=== PATIENT | male | born 1980 | race Two or more races ===

== ENCOUNTER 2023-10-22 13:13 | Inpatient (IN) | payer MEDICAID ==
[~2023-10-22] VITALS: Ht 175.3 cm; Wt 81.0 kg
[2023-10-22 16:13] LABS: Basophils # (auto) 0 10 ^3/uL (0-0.2); Basophils % (auto) 0.3 % (0.0-2.0); Eosinophils # (auto) 0 10 ^3/uL (0-0.8); Hemoglobin 13.5 g/dL (13.5-17.5); Lymphocytes # (auto) 0.7 10 ^3/uL (0.4-5.4); Lymphocytes % (auto) 6.3 % (10.0-50.0); Mean Corpuscular Hemoglobin 29.1 pg (28.0-32.0); Mean Corpuscular Hgb Conc. 33.9 g/dL (32.0-36.0); Mean Corpuscular Volume 85.8 fL (80.0-100.0); Monocytes # (auto) 1.2 10 ^3/uL (0-1.3); Monocytes % (auto) 11.1 % (0.0-12.0); Neutrophils # (auto) 8.5 10 ^3/uL (1.6-8.6); Neutrophils % (auto) 82.3 % (37.0-80.0); Nucleated Red Blood Cells % 0.1 %; Platelet Count (auto) 262 10^3/uL (140-450); Red Blood Cells 4.66 10^6/uL (4.5-5.90); Red Cell Distribution Width 12.9 % (11.8-14.3); White Blood Cell 10.4 10^3/uL (4.4-10.8)
[2023-10-22 16:33] LABS: Alanine Aminotransferase 99 U/L (7-40); Albumin 4.4 g/dL (3.2-4.8); Alkaline Phosphatase 161 U/L (46-116); Anion Gap 2 (5-15); Aspartate Aminotransferase 67 U/L (13-40); Bilirubin, Total 1.2 mg/dL (0.2-1.0); Calcium 9.5 mg/dL (8.7-10.4); Carbon Dioxide 32 mmol/L (20-30); Chloride 94 mmol/L (98-107); Glucose 117 mg/dL (74-106); Potassium 4.2 mmol/L (3.5-5.1); Sodium 128 mmol/L (136-145); Total Protein 7.5 g/dL (5.7-8.2)
[2023-10-22 16:37] LABS: BUN/Creatinine Ratio 5.7 (10.0-20.0); Blood Urea Nitrogen < 5 mg/dL (9-23)
[2023-10-22 16:50] LABS: Lipase 27 U/L (12-53)
[2023-10-22] MEDS: SODIUM CHLORIDE 0.9% 1,000 ML IV ONE (17:39)
[2023-10-22] MEDS: KETOROLAC TROMETH 30 MG/ML 1ML VIAL IV ONE (17:40)
[2023-10-22] MEDS: ONDANSETRON HCL 4 MG/2 ML VIAL IV ONE (17:41)
[2023-10-22 18:11] LABS: Urine Bacteria None Seen /hpf (None Seen)
[2023-10-22 18:30] VITALS: PULSE 115; RESP 17; O2SAT 95
[2023-10-22] MEDS ORDERED: ACETAMINOPHEN 325 MG TAB PO ONE (18:30)
[2023-10-22 19:01] LABS: Urine Blood 1+ /uL (Negative); Urine Clarity Clear (Clear); Urine Color Yellow (Yellow); Urine Protein, UAD TRACE (Negative); Urine Specific Gravity 1.009 (1.001-1.035); Urine Urobilinogen Normal (Negative); Urine WBC 1 /hpf (0 - 3)
[2023-10-22] MEDS: ACETAMINOPHEN 500 MG TAB PO ONE (19:15)
[2023-10-22] MEDS ORDERED: HYDROcodone-ACET 5/325MG TAB PO PRN (22:45)
[2023-10-22] MEDS ORDERED: ONDANSETRON HCL 4 MG/2 ML VIAL IV PRN (22:45)
[2023-10-22] MEDS ORDERED: hydrALAZINE HCL 20 MG/ML VL IV PRN (22:45)
[2023-10-22] MEDS ORDERED: DOCUSATE SOD 100 MG CAP PO PRN (22:45)
[2023-10-22] MEDS: SODIUM CHLORIDE 0.9% 1,000 ML IV SCH (22:48)
[2023-10-22] MEDS: cefTRIAXone 1GM/50ML D5W 50 ML IV ONE (22:53)
[2023-10-22] MEDS ORDERED: MORPHINE SULFATE INJ 2 MG/ml SYRG IV PRN (23:45)
[2023-10-22] MEDS ORDERED: NITROGLYCERIN 0.4 MG SL TAB SL PRN (23:45)
[2023-10-23] VITALS (8 sets, daily range): BP systolic 114–132; BP diastolic 69–80; PULSE 81–118; RESP 16–21; TEMP 97.9–101.3; O2SAT 0–98
[2023-10-23] MEDS: IBUPROFEN 600 MG TAB PO PRN (00:06)
[2023-10-23] MEDS ORDERED: VANCOMYCIN PER PHARMACY 0 MG IV SCH (02:30)
[2023-10-23] MEDS ORDERED: TRAM50TA2 PO (03:55)
[2023-10-23] MEDS ORDERED: IBUP200C14 PO (03:55)
[2023-10-23] MEDS: VANCOMYCIN 1GM/200ML 200 ML IV ONE (03:56)
[2023-10-23 05:48] LABS: Basophils # (auto) 0 10 ^3/uL (0-0.2); Basophils % (auto) 0.2 % (0.0-2.0); Eosinophils # (auto) 0 10 ^3/uL (0-0.8); Hematocrit 38.1 % (41.0-53.0); Lymphocytes # (auto) 0.9 10 ^3/uL (0.4-5.4); Mean Corpuscular Hemoglobin 29.4 pg (28.0-32.0); Mean Corpuscular Hgb Conc. 34.2 g/dL (32.0-36.0); Mean Corpuscular Volume 85.9 fL (80.0-100.0); Monocytes # (auto) 1.1 10 ^3/uL (0-1.3); Neutrophils # (auto) 7.4 10 ^3/uL (1.6-8.6); Neutrophils % (auto) 78.8 % (37.0-80.0); Platelet Count (auto) 246 10^3/uL (140-450); Red Blood Cells 4.43 10^6/uL (4.5-5.90); White Blood Cell 9.4 10^3/uL (4.4-10.8)
[2023-10-23 06:02] LABS: Alanine Aminotransferase 76 U/L (7-40); Alkaline Phosphatase 139 U/L (46-116); Anion Gap 5 (5-15); Aspartate Aminotransferase 45 U/L (13-40); BUN/Creatinine Ratio 6.1 (10.0-20.0); Blood Urea Nitrogen 6 mg/dL (9-23); Calcium 8.7 mg/dL (8.7-10.4); Carbon Dioxide 27 mmol/L (20-30); Chloride 100 mmol/L (98-107); Glucose 111 mg/dL (74-106); Potassium 4.2 mmol/L (3.5-5.1); Sodium 132 mmol/L (136-145)
[2023-10-23 06:03] LABS: Bilirubin, Total 0.7 mg/dL (0.2-1.0); Total Protein 6.7 g/dL (5.7-8.2)
[2023-10-23] MEDS: FAMOTIDINE (10MG/ML) 2ML VL IV SCH (08:54)
[2023-10-23] MEDS: cefTRIAXone 1GM/50ML D5W 50 ML IV SCH (08:54)
[2023-10-23] MEDS: ACETAMINOPHEN 325 MG TAB PO ONE (10:32)
[2023-10-23 11:17] LABS: Triglycerides 115 mg/dL (< 150)
[2023-10-23 11:18] LABS: LDL Cholesterol 50 mg/dL (< 100)
[2023-10-23 11:19] LABS: HDL Cholesterol 38 mg/dL (40-59)
[2023-10-23 11:20] LABS: Cholesterol 116 mg/dL (< 200)
[2023-10-23 12:05] LABS: Amphetamine Screen, Urine Neg (NEGATIVE); Barbiturate Scree,Urine Neg (NEGATIVE); Benzodiazephine Screen, Urine Neg (NEGATIVE); Cannabinoid Screen, Urine Neg (NEGATIVE); Cocaine Screen, Urine Neg (NEGATIVE); Opiate Scree,Urine Neg (NEGATIVE); Phencyclidine Screen, Urine Neg (NEGATIVE)
[2023-10-23] MEDS: VANCOMYCIN 1GM/200ML 200 ML IV SCH (13:22)
[2023-10-23] MEDS: MORPHINE SULFATE INJ 2 MG/ml SYRG IV PRN (18:49)
[2023-10-23 23:12] LABS: Alanine Aminotransferase 65 U/L (7-40); Albumin 3.9 g/dL (3.2-4.8); Alkaline Phosphatase 168 U/L (46-116); Anion Gap 6 (5-15); Aspartate Aminotransferase 36 U/L (13-40); BUN/Creatinine Ratio 7.4 (10.0-20.0); Blood Urea Nitrogen 7 mg/dL (9-23); Calcium 8.5 mg/dL (8.7-10.4); Carbon Dioxide 25 mmol/L (20-30); Chloride 104 mmol/L (98-107); Glucose 112 mg/dL (74-106); Potassium 4.1 mmol/L (3.5-5.1); Sodium 135 mmol/L (136-145)
[2023-10-23 23:13] LABS: Bilirubin, Total 0.5 mg/dL (0.2-1.0); Total Protein 6.6 g/dL (5.7-8.2)
[2023-10-23] MEDS: PIPERACILLIN-TAZOB 3.375GM 100 ML IV ONE (23:57)
[2023-10-24 01:12] VITALS: BP 116/76; PULSE 94; RESP 19; TEMP 99; O2SAT 96
[2023-10-24] MEDS: VANCOMYCIN 1GM/200ML 200 ML IV ONE (07:00)
[2023-10-24] MEDS: PIPERACILLIN-TAZOB 3.375GM 100 ML IV SCH (07:10)
[2023-10-24] MEDS ORDERED: VANCOMYCIN PER PHARMACY 0 MG IV SCH (08:00)
[2023-10-24 09:00] VITALS: BP 124/77; PULSE 90; RESP 15; TEMP 98.4; O2SAT 95
[2023-10-24 12:00] VITALS: BP 116/78; PULSE 96; RESP 18; TEMP 98.7; O2SAT 96
[2023-10-24] MEDS: VANCOMYCIN 1GM/200ML 200 ML IV SCH (13:39)
[2023-10-24 17:36] VITALS: BP 107/69; PULSE 79; RESP 15; TEMP 97.7; O2SAT 100
[2023-10-24 21:00] VITALS: BP 113/77; PULSE 90; RESP 18; TEMP 99.1; O2SAT 93
[2023-10-25] VITALS (8 sets, daily range): BP systolic 114–143; BP diastolic 69–83; PULSE 87–97; RESP 17–20; TEMP 97.3–101.6; O2SAT 93–97
[2023-10-25 06:55] LABS: Basophils # (auto) 0.1 10 ^3/uL (0-0.2); Basophils % (auto) 0.7 % (0.0-2.0); Eosinophils # (auto) 0.1 10 ^3/uL (0-0.8); Hematocrit 35.1 % (41.0-53.0); Lymphocytes % (auto) 18.4 % (10.0-50.0); Mean Corpuscular Hemoglobin 29.5 pg (28.0-32.0); Mean Corpuscular Hgb Conc. 34.1 g/dL (32.0-36.0); Mean Corpuscular Volume 86.3 fL (80.0-100.0); Monocytes # (auto) 1.8 10 ^3/uL (0-1.3); Monocytes % (auto) 16.4 % (0.0-12.0); Neutrophils # (auto) 6.8 10 ^3/uL (1.6-8.6); Neutrophils % (auto) 63.5 % (37.0-80.0); Platelet Count (auto) 267 10^3/uL (140-450); Red Blood Cells 4.07 10^6/uL (4.5-5.90); Red Cell Distribution Width 13.8 % (11.8-14.3); White Blood Cell 10.8 10^3/uL (4.4-10.8)
[2023-10-25 07:05] LABS: Alanine Aminotransferase 57 U/L (7-40); Alkaline Phosphatase 214 U/L (46-116); Anion Gap 7 (5-15); BUN/Creatinine Ratio 7.7 (10.0-20.0); Blood Urea Nitrogen 6 mg/dL (9-23); Calcium 8.1 mg/dL (8.7-10.4); Carbon Dioxide 24 mmol/L (20-30); Chloride 101 mmol/L (98-107); Glucose 109 mg/dL (74-106); Potassium 3.4 mmol/L (3.5-5.1); Sodium 132 mmol/L (136-145)
[2023-10-25 07:06] LABS: Albumin 3.5 g/dL (3.2-4.8); Aspartate Aminotransferase 31 U/L (13-40); Bilirubin, Total 0.5 mg/dL (0.2-1.0)
[2023-10-25 07:07] LABS: Total Protein 6.1 g/dL (5.7-8.2)
[2023-10-25] MEDS: POTASSIUM EFFERVESENT TAB 25 MEQ PO ONE (08:00)
[2023-10-25] MEDS: DOCUSATE SOD 100 MG CAP PO SCH (08:43)
[2023-10-25] MEDS ORDERED: VANCOMYCIN 1GM/200ML 200 ML IV SCH (12:00)
[2023-10-26] VITALS (7 sets, daily range): BP systolic 119–133; BP diastolic 68–79; PULSE 67–93; RESP 16–20; TEMP 97.8–100.7; O2SAT 93–97
[2023-10-26 07:20] LABS: Alanine Aminotransferase 79 U/L (7-40); Albumin 3.4 g/dL (3.2-4.8); Alkaline Phosphatase 259 U/L (46-116); Anion Gap 5 (5-15); Aspartate Aminotransferase 49 U/L (13-40); Calcium 8.4 mg/dL (8.7-10.4); Carbon Dioxide 25 mmol/L (20-30); Chloride 102 mmol/L (98-107); Glucose 105 mg/dL (74-106); Potassium 3.4 mmol/L (3.5-5.1); Sodium 132 mmol/L (136-145)
[2023-10-26 07:21] LABS: BUN/Creatinine Ratio 6.3 (10.0-20.0); Bilirubin, Total 0.6 mg/dL (0.2-1.0); Blood Urea Nitrogen < 5 mg/dL (9-23); Total Protein 5.9 g/dL (5.7-8.2)
[2023-10-26 11:29] LABS: Hepatitis B Core Total AB Negative (Negative)
[2023-10-26 12:16] LABS: Hepatitis A Total Antibody Positive (Negative); Hepatitis B Surface Antibody Negative (Negative); Hepatitis B Surface Antigen Negative (Negative); Hepatitis C Antibody Negative (Negative)
[2023-10-26] MEDS: POTASSIUM CHL 20 Meq TABLET PO ONE (18:15)
[2023-10-27] VITALS (8 sets, daily range): BP systolic 111–127; BP diastolic 74–79; PULSE 80–101; RESP 16–20; TEMP 98.2–100.4; O2SAT 93–97
[2023-10-27 09:18] LABS: Basophils # (auto) 0.1 10 ^3/uL (0-0.2); Basophils % (auto) 0.8 % (0.0-2.0); Eosinophils # (auto) 0.2 10 ^3/uL (0-0.8); Hematocrit 40.5 % (41.0-53.0); Hemoglobin 13.5 g/dL (13.5-17.5); Lymphocytes # (auto) 1.3 10 ^3/uL (0.4-5.4); Lymphocytes % (auto) 11.1 % (10.0-50.0); Mean Corpuscular Hemoglobin 28.8 pg (28.0-32.0); Mean Corpuscular Hgb Conc. 33.4 g/dL (32.0-36.0); Mean Corpuscular Volume 86.2 fL (80.0-100.0); Monocytes # (auto) 1.6 10 ^3/uL (0-1.3); Monocytes % (auto) 14.1 % (0.0-12.0); Neutrophils # (auto) 8.2 10 ^3/uL (1.6-8.6); Nucleated Red Blood Cells % 0.1 %; Platelet Count (auto) 390 10^3/uL (140-450); Red Cell Distribution Width 13.6 % (11.8-14.3); White Blood Cell 11.4 10^3/uL (4.4-10.8)
[2023-10-27 09:39] LABS: Alanine Aminotransferase 106 U/L (7-40); Albumin 4.1 g/dL (3.2-4.8); Alkaline Phosphatase 272 U/L (46-116); Anion Gap 3 (5-15); Aspartate Aminotransferase 64 U/L (13-40); Bilirubin, Total 0.7 mg/dL (0.2-1.0); Calcium 8.9 mg/dL (8.7-10.4); Carbon Dioxide 27 mmol/L (20-30); Chloride 100 mmol/L (98-107); Glucose 158 mg/dL (74-106); Potassium 3.8 mmol/L (3.5-5.1); Sodium 130 mmol/L (136-145); Total Protein 7.3 g/dL (5.7-8.2)
[2023-10-27 09:40] LABS: BUN/Creatinine Ratio 5.4 (10.0-20.0); Blood Urea Nitrogen < 5 mg/dL (9-23)
[2023-10-28] VITALS (9 sets, daily range): BP systolic 96–112; BP diastolic 65–72; PULSE 83–100; RESP 17–20; TEMP 98.1–100.7; O2SAT 93–100
[2023-10-28] MEDS: VANCOMYCIN 1,250 MG in D5W 5% 250 ML IV SCH (04:00)
[2023-10-28 06:36] LABS: Alanine Aminotransferase 105 U/L (7-40); Albumin 3.9 g/dL (3.2-4.8); Alkaline Phosphatase 225 U/L (46-116); Anion Gap 8 (5-15); Aspartate Aminotransferase 51 U/L (13-40); BUN/Creatinine Ratio 5.6 (10.0-20.0); Bilirubin, Total 0.5 mg/dL (0.2-1.0); Blood Urea Nitrogen 5 mg/dL (9-23); Calcium 8.6 mg/dL (8.7-10.4); Carbon Dioxide 20 mmol/L (20-30); Chloride 100 mmol/L (98-107); Glucose 106 mg/dL (74-106); Potassium 3.8 mmol/L (3.5-5.1); Sodium 128 mmol/L (136-145); Total Protein 6.9 g/dL (5.7-8.2)
[2023-10-28 08:07] LABS: Basophils # (auto) 0.1 10 ^3/uL (0-0.2); Basophils % (auto) 0.9 % (0.0-2.0); Eosinophils # (auto) 0.1 10 ^3/uL (0-0.8); Eosinophils % (auto) 0.9 % (0.0-7.0); Hematocrit 38.1 % (41.0-53.0); Hemoglobin 12.9 g/dL (13.5-17.5); Lymphocytes # (auto) 1.9 10 ^3/uL (0.4-5.4); Mean Corpuscular Hemoglobin 29.1 pg (28.0-32.0); Mean Corpuscular Hgb Conc. 33.8 g/dL (32.0-36.0); Mean Corpuscular Volume 86.1 fL (80.0-100.0); Monocytes # (auto) 1.9 10 ^3/uL (0-1.3); Monocytes % (auto) 14.1 % (0.0-12.0); Neutrophils # (auto) 9.6 10 ^3/uL (1.6-8.6); Neutrophils % (auto) 70.1 % (37.0-80.0); Nucleated Red Blood Cells % 0.3 %; Platelet Count (auto) 377 10^3/uL (140-450); Red Blood Cells 4.42 10^6/uL (4.5-5.90); Red Cell Distribution Width 13.3 % (11.8-14.3); White Blood Cell 13.7 10^3/uL (4.4-10.8)
[2023-10-28] MEDS ORDERED: VANCOMYCIN 1,250 MG in D5W 5% 250 ML IV SCH (12:00)
[2023-10-28] MEDS: VANCOMYCIN 1.25GM/250ML 250 ML IV SCH (14:15)
[2023-10-28] MEDS: LORazepam 2MG/ML-1ML VIAL IV PRN (15:49)
[2023-10-29 01:00] VITALS: BP 111/73; PULSE 65; RESP 18; TEMP 98.8; O2SAT 95
[2023-10-29 03:19] LABS: Hematocrit 37.6 % (41.0-53.0); Hemoglobin 12.6 g/dL (13.5-17.5); Mean Corpuscular Hemoglobin 28.9 pg (28.0-32.0); Mean Corpuscular Hgb Conc. 33.6 g/dL (32.0-36.0); Mean Corpuscular Volume 86.1 fL (80.0-100.0); Platelet Count (auto) 345 10^3/uL (140-450); Red Blood Cells 4.37 10^6/uL (4.5-5.90); Red Cell Distribution Width 13.5 % (11.8-14.3)
[2023-10-29 03:29] LABS: Basophils % (manual) 0 (0.0-2.0); Blast Cells 0; Metamyelocytes % 0; Promyelocytes % 0; Reactive Lymphocytes 0
[2023-10-29 03:30] LABS: Alanine Aminotransferase 92 U/L (7-40); Albumin 3.7 g/dL (3.2-4.8); Alkaline Phosphatase 175 U/L (46-116); Anion Gap 8 (5-15); Aspartate Aminotransferase 40 U/L (13-40); BUN/Creatinine Ratio 6.7 (10.0-20.0); Blood Urea Nitrogen 6 mg/dL (9-23); Calcium 8.5 mg/dL (8.7-10.4); Carbon Dioxide 22 mmol/L (20-30); Chloride 101 mmol/L (98-107); Glucose 102 mg/dL (74-106); Potassium 3.7 mmol/L (3.5-5.1); Sodium 131 mmol/L (136-145)
[2023-10-29 03:31] LABS: Bilirubin, Total 0.7 mg/dL (0.2-1.0); Total Protein 6.7 g/dL (5.7-8.2)
[2023-10-29 04:13] LABS: Band Neutrophils % (manual) 5; Eosinophils % (manual) 3 (0-7); Lymphocytes % (manual) 14 (10.0-50.0); Monocytes % (manual) 14 (0-12); Myelocytes % 1; Platelet Estimate Adequate
[2023-10-29 04:14] LABS: Large Platelets FEW
[2023-10-29 05:00] VITALS: BP 91/53; PULSE 79; RESP 18; TEMP 98.3; O2SAT 97
[2023-10-29 08:00] VITALS: BP 105/70; PULSE 85; RESP 16; RESP 18; TEMP 98.2; O2SAT 98
[2023-10-29 12:00] VITALS: BP 117/66; PULSE 85; RESP 14; TEMP 98.3; O2SAT 95
[2023-10-29] MEDS ORDERED: fentaNYL CITRATE 100 MCG/2 ML VL ONE (12:50)
[2023-10-29] MEDS ORDERED: KETAMINE 50mg/ML 1ml syringe ONE (12:50)
[2023-10-29] MEDS ORDERED: MIDAZOLAM HCL 2MG/2ML 2ml VIAL (1mg/ml) ONE (12:50)
[2023-10-29] MEDS ORDERED: MEPERIDINE HCL (50 MG/ML) 1 ML VIAL ONE (12:50)
[2023-10-29] MEDS ORDERED: LIDOCAINE 2% (LOCAL ANESTH.) PF 5ml SDV ONE (12:51)
[2023-10-29] MEDS ORDERED: KETOROLAC TROMETH 30 MG/ML 1ML VIAL ONE (12:51)
[2023-10-29] MEDS ORDERED: GLYCOPYRROLATE 0.2 MG/ML 1ML VIAL ONE (12:51)
[2023-10-29] MEDS ORDERED: DexAMETHasone SOD PHOS 10MG/1ML VIAL INJ ONE (12:51)
[2023-10-29] MEDS ORDERED: PROPOFOL 10 MG/ML 20 ML IV ONE (12:51)
[2023-10-29] MEDS ORDERED: ROCURONIUM 10MG/ML 10ML VIAL IV ONE (12:51)
[2023-10-29 13:01] LABS: COVID19 ANTIGEN SOFIA FIA POSITIVE (NEGATIVE)
[2023-10-29 14:00] VITALS: BP 113/69; PULSE 83; RESP 16; TEMP 98; O2SAT 96
[2023-10-29] MEDS ORDERED: ZINC220C10 PO (14:03)
[2023-10-29] MEDS ORDERED: ASCO500T11 PO (14:03)
[2023-10-29] MEDS ORDERED: CHOL1CAP47 PO (14:03)
== END 2023-10-29 18:10 | disposition home or self-care (01) | DRG 720 ==
LOC: ER 13:13 → WEST WING 23:33 → OVERFLOW 23:33 → WEST WING 10-23 02:56
PROVIDERS: ADMIT Internal Medicine Geriatric Medicine; ATTEND Internal Medicine Geriatric Medicine
DX: A41.9 Sepsis, unspecified organism (principal); U07.1 COVID-19; K80.00 Calculus of gallbladder with acute cholecystitis without obstruction; A09 Infectious gastroenteritis and colitis, unspecified; E87.1 Hypo-osmolality and hyponatremia; K56.7 Ileus, unspecified; K57.30 Diverticulosis of large intestine without perforation or abscess without bleeding; Z20.822 Contact with and (suspected) exposure to COVID-19; F10.10 Alcohol abuse, uncomplicated; R74.01 Elevation of levels of liver transaminase levels; Z79.899 Other long term (current) drug therapy; Z88.8 Allergy status to other drugs, medicaments and biological substances
CPT/HCPCS: 36415; 74018; 74176; 74181; 76705; 78226; 80053; 80061; 80202; 80307; 81001; 82270; 82306; 82565; 82607; 83036; 83690; 83735; 83986; 84439; 84443; 85007; 85025; 85027; 85048; 86703; 86704; 86706; 86708; 86803; 87040; 87077; 87186; 87340; 87426; G0378; J1100; J1885; J2001; J2250; J2405; J2543; J2704; J3490; J7060

== ENCOUNTER 2023-11-14 23:37 | Inpatient (IN) | payer MEDICAID ==
[~2023-11-14] VITALS: Ht 175.3 cm; Wt 72.9 kg
[~2023-11-14 23:37] MED LIST: ASCO500T11 PO; CHOL1CAP47 PO; IBUP200C14 PO; TRAM50TA2 PO; ZINC220C10 PO
[2023-11-15] VITALS (7 sets, daily range): BP systolic 99–122; BP diastolic 56–76; PULSE 82–103; RESP 16–89; TEMP 98.2–99.3; O2SAT 93–99
[2023-11-15 00:33] LABS: Urine Bacteria None Seen /hpf (None Seen)
[2023-11-15 00:49] LABS: Urine Blood Negative /uL (Negative); Urine Clarity Clear (Clear); Urine Color Light-Yellow (Yellow); Urine Protein, UAD Negative (Negative); Urine Specific Gravity 1.015 (1.001-1.035); Urine Urobilinogen Normal (Negative); Urine WBC <1 /hpf (0 - 3)
[2023-11-15 00:55] LABS: Basophils # (auto) 0.1 10 ^3/uL (0-0.2); Eosinophils # (auto) 0.2 10 ^3/uL (0-0.8)
[2023-11-15 01:10] LABS: Lymphocytes # (auto) 2.2 10 ^3/uL (0.4-5.4); Mean Corpuscular Volume 91.9 fL (80.0-100.0)
[2023-11-15 01:14] LABS: Alanine Aminotransferase 72 U/L (7-40); Albumin 4.3 g/dL (3.2-4.8); Alkaline Phosphatase 168 U/L (46-116); Anion Gap 6 (5-15); Aspartate Aminotransferase 38 U/L (13-40); Bilirubin, Total 0.4 mg/dL (0.2-1.0); Calcium 9.7 mg/dL (8.7-10.4); Carbon Dioxide 25 mmol/L (20-30); Chloride 102 mmol/L (98-107); Glucose 102 mg/dL (74-106); Potassium 4.1 mmol/L (3.5-5.1); Sodium 133 mmol/L (136-145); Total Protein 7.8 g/dL (5.7-8.2)
[2023-11-15 01:16] LABS: Basophils % (auto) 1.1 % (0.0-2.0); Eosinophils % (auto) 2.3 % (0.0-7.0); Hematocrit 31.4 % (41.0-53.0); Hemoglobin 11.3 g/dL (13.5-17.5); Lymphocytes % (auto) 24.6 % (10.0-50.0); Mean Corpuscular Hgb Conc. 35.9 g/dL (32.0-36.0); Monocytes # (auto) 0.8 10 ^3/uL (0-1.3); Monocytes % (auto) 9.2 % (0.0-12.0); Neutrophils # (auto) 5.7 10 ^3/uL (1.6-8.6); Neutrophils % (auto) 62.8 % (37.0-80.0); Platelet Count (auto) 578 10^3/uL (140-450); Red Blood Cells 3.41 10^6/uL (4.5-5.90); White Blood Cell 9.1 10^3/uL (4.4-10.8)
[2023-11-15 01:19] LABS: Large Platelets FEW; Platelet Estimate Increa
[2023-11-15 01:21] LABS: Amphetamine Screen, Urine Neg (NEGATIVE); Barbiturate Scree,Urine Neg (NEGATIVE); Benzodiazephine Screen, Urine Neg (NEGATIVE); Cannabinoid Screen, Urine Neg (NEGATIVE); Cocaine Screen, Urine Neg (NEGATIVE); Opiate Scree,Urine Neg (NEGATIVE); Phencyclidine Screen, Urine Neg (NEGATIVE)
[2023-11-15 01:34] LABS: BUN/Creatinine Ratio 7.1 (10.0-20.0); Blood Urea Nitrogen < 5 mg/dL (9-23)
[2023-11-15] MEDS: ONDANSETRON HCL 4 MG/2 ML VIAL IV ONE (06:32)
[2023-11-15] MEDS: MORPHINE SULFATE INJ 2 MG/ml SYRG IV ONE (06:33)
[2023-11-15] MEDS ORDERED: ONDANSETRON HCL 4 MG/2 ML VIAL IV PRN (10:15)
[2023-11-15] MEDS: SODIUM CHLORIDE 0.9% 1,000 ML IV SCH (10:41)
[2023-11-15] MEDS: HYDROcodone-ACET 5/325MG TAB PO PRN (12:20)
[2023-11-15] MEDS: PIPERACILLIN-TAZOB 3.375GM 100 ML IV ONE (18:02)
[2023-11-15] MEDS: MORPHINE SULFATE INJ 2 MG/ml SYRG IV PRN (18:03)
[2023-11-16] MEDS: PIPERACILLIN-TAZOB 3.375GM 100 ML IV SCH (00:29)
[2023-11-16 01:00] VITALS: BP 123/68; PULSE 129; RESP 17; TEMP 103.1; O2SAT 92
[2023-11-16] MEDS: ACETAMINOPHEN 325 MG TAB PO PRN (01:10)
[2023-11-16 07:21] LABS: Alanine Aminotransferase 89 U/L (7-40); Alkaline Phosphatase 194 U/L (46-116); Anion Gap 8 (5-15); Calcium 9.3 mg/dL (8.7-10.4); Carbon Dioxide 25 mmol/L (20-30); Chloride 101 mmol/L (98-107); Glucose 122 mg/dL (74-106); Potassium 3.9 mmol/L (3.5-5.1); Sodium 134 mmol/L (136-145)
[2023-11-16 07:22] LABS: Albumin 3.8 g/dL (3.2-4.8); Aspartate Aminotransferase 53 U/L (13-40); INR 1.17 (0.9-1.15); Partial Thromboplastin Time 30.8 SEC (24.5-34.5); Prothrombin Time 12.3 sec (9.3-11.8)
[2023-11-16 07:23] LABS: Bilirubin, Total 0.6 mg/dL (0.2-1.0); Total Protein 6.9 g/dL (5.7-8.2)
[2023-11-16 07:24] LABS: BUN/Creatinine Ratio 5.4 (10.0-20.0); Blood Urea Nitrogen < 5 mg/dL (9-23)
[2023-11-16 07:57] LABS: Basophils # (auto) 0.1 10 ^3/uL (0-0.2); Red Cell Distribution Width 13.2 % (11.8-14.3)
[2023-11-16 08:00] VITALS: PULSE 115; RESP 17
[2023-11-16 08:00] LABS: Basophils % (auto) 1.1 % (0.0-2.0); Eosinophils # (auto) 0.2 10 ^3/uL (0-0.8); Eosinophils % (auto) 1.3 % (0.0-7.0); Hematocrit 31.9 % (41.0-53.0); Lymphocytes # (auto) 0.9 10 ^3/uL (0.4-5.4); Lymphocytes % (auto) 7.4 % (10.0-50.0); Mean Corpuscular Hemoglobin 29.9 pg (28.0-32.0); Mean Corpuscular Hgb Conc. 34.6 g/dL (32.0-36.0); Mean Corpuscular Volume 86.4 fL (80.0-100.0); Monocytes # (auto) 0.6 10 ^3/uL (0-1.3); Monocytes % (auto) 5.2 % (0.0-12.0); Neutrophils # (auto) 10.4 10 ^3/uL (1.6-8.6); Nucleated Red Blood Cells % 0.1 %; Platelet Count (auto) 522 10^3/uL (140-450); Red Blood Cells 3.69 10^6/uL (4.5-5.90); White Blood Cell 12.2 10^3/uL (4.4-10.8)
[2023-11-16 09:00] VITALS: BP 117/67; PULSE 115; RESP 17; TEMP 100.2; O2SAT 96
[2023-11-16] MEDS ORDERED: MEPERIDINE HCL (25 MG/ML) 1ML VIAL ONE (09:08)
[2023-11-16] MEDS ORDERED: fentaNYL CITRATE 100 MCG/2 ML VL ONE (09:08)
[2023-11-16] MEDS ORDERED: MIDAZOLAM HCL 2MG/2ML 2ml VIAL (1mg/ml) ONE (09:08)
[2023-11-16] MEDS ORDERED: ROCURONIUM 10MG/ML 10ML VIAL IV ONE (09:12)
[2023-11-16] MEDS ORDERED: LIDOCAINE 2% (LOCAL ANESTH.) PF 5ml SDV ONE (09:12)
[2023-11-16] MEDS ORDERED: ONDANSETRON HCL 4 MG/2 ML VIAL ONE (09:12)
[2023-11-16] MEDS ORDERED: PROPOFOL 10 MG/ML 20 ML IV ONE (09:12)
[2023-11-16] MEDS: LIDOCAINE 1% HCL (LOCAL ANESTH.) INJ 20ML MDV IJ ONE (09:51)
[2023-11-16] MEDS ORDERED: HYDROmorphone HCL 2 MG/ML VL/or syr IV PRN ×2 (10:15)
[2023-11-16] MEDS: ONDANSETRON HCL 4 MG/2 ML VIAL IV ONE (10:15)
[2023-11-16] MEDS ORDERED: NEOSTIGMINE 1 MG/ML INJ (10mg/10ML VIAL) ONE (10:24)
[2023-11-16] MEDS ORDERED: GLYCOPYRROLATE 0.2 MG/ML 1ML VIAL ONE (10:24)
[2023-11-16] MEDS: MEPERIDINE HCL (25 MG/ML) 1ML VIAL IM ONE (11:37)
[2023-11-16] MEDS: LIDOCAINE 1%-Mpf/Epinephrine 1:200,000 30ml VIAL ONE ×2 (12:08)
[2023-11-16] MEDS: MEPERIDINE HCL (25 MG/ML) 1ML VIAL ONE (13:25)
[2023-11-16] MEDS: MEPERIDINE HCL (25 MG/ML) 1ML VIAL IV ONE (13:25)
[2023-11-16 17:00] VITALS: BP 104/62; PULSE 91; RESP 17; TEMP 98.4; O2SAT 97
[2023-11-16 20:00] VITALS: PULSE 92; RESP 18
[2023-11-16 22:00] VITALS: BP 103/56; PULSE 92; RESP 18; TEMP 99.2; O2SAT 93
[2023-11-17 01:00] VITALS: BP 118/69; PULSE 94; RESP 18; TEMP 99.4; O2SAT 93
[2023-11-17 05:00] VITALS: BP 116/71; PULSE 93; RESP 18; TEMP 100.5; O2SAT 93
[2023-11-17 06:46] LABS: Basophils # (auto) 0 10 ^3/uL (0-0.2); Basophils % (auto) 0.4 % (0.0-2.0); Eosinophils # (auto) 0.4 10 ^3/uL (0-0.8); Eosinophils % (auto) 4.9 % (0.0-7.0); Hematocrit 30.3 % (41.0-53.0); Hemoglobin 10.6 g/dL (13.5-17.5); Lymphocytes # (auto) 1.4 10 ^3/uL (0.4-5.4); Lymphocytes % (auto) 15.8 % (10.0-50.0); Mean Corpuscular Hemoglobin 31.1 pg (28.0-32.0); Mean Corpuscular Hgb Conc. 35.1 g/dL (32.0-36.0); Mean Corpuscular Volume 88.6 fL (80.0-100.0); Monocytes # (auto) 0.8 10 ^3/uL (0-1.3); Monocytes % (auto) 9.6 % (0.0-12.0); Neutrophils % (auto) 69.3 % (37.0-80.0); Platelet Count (auto) 436 10^3/uL (140-450); Red Blood Cells 3.42 10^6/uL (4.5-5.90); Red Cell Distribution Width 13.1 % (11.8-14.3); White Blood Cell 8.6 10^3/uL (4.4-10.8)
[2023-11-17 07:03] LABS: Alanine Aminotransferase 80 U/L (7-40); Albumin 3.5 g/dL (3.2-4.8); Alkaline Phosphatase 177 U/L (46-116); Anion Gap 7 (5-15); Aspartate Aminotransferase 35 U/L (13-40); Calcium 8.7 mg/dL (8.7-10.4); Carbon Dioxide 26 mmol/L (20-30); Chloride 100 mmol/L (98-107); Glucose 103 mg/dL (74-106); Potassium 3.9 mmol/L (3.5-5.1); Sodium 133 mmol/L (136-145)
[2023-11-17 07:04] LABS: Bilirubin, Total 0.6 mg/dL (0.2-1.0); Total Protein 6.4 g/dL (5.7-8.2)
[2023-11-17 07:06] LABS: BUN/Creatinine Ratio 6.6 (10.0-20.0); Blood Urea Nitrogen < 5 mg/dL (9-23)
[2023-11-17 08:00] VITALS: PULSE 90; RESP 17
[2023-11-17 09:00] VITALS: BP 109/68; PULSE 90; RESP 17; TEMP 98.4; O2SAT 94
[2023-11-17 13:00] VITALS: BP 119/79; PULSE 89; RESP 16; TEMP 97.9; O2SAT 95
[2023-11-17] MEDS ORDERED: MET500T PO (13:52)
[2023-11-17] MEDS ORDERED: ACET-1882 PO (13:52)
[2023-11-17] MEDS ORDERED: CIPR250T26 PO (13:52)
[2023-11-17 15:31] VITALS: TEMP 36.6
[2023-11-20] MEDS ORDERED: DOXY1CAP58 PO (14:59)
== END 2023-11-17 17:20 | disposition home or self-care (01) | DRG 710 ==
LOC: ER 23:37 → OVERFLOW 11-15 10:16 → EAST 11-15 15:18
PROVIDERS: ADMIT Internal Medicine Pulmonary Disease; ATTEND Emergency Medicine
PROC: 0FT44ZZ Resection of Gallbladder, Percutaneous Endoscopic Approach (ICD-10-PCS; principal; 2023-11-16 09:23)
DX: A41.9 Sepsis, unspecified organism (principal); J15.69 Pneumonia due to other Gram-negative bacteria; J90 Pleural effusion, not elsewhere classified; E87.1 Hypo-osmolality and hyponatremia; K80.10 Calculus of gallbladder with chronic cholecystitis without obstruction; R16.0 Hepatomegaly, not elsewhere classified; G89.29 Other chronic pain; M48.8X5 Other specified spondylopathies, thoracolumbar region; D75.838 Other thrombocytosis; M54.50 Low back pain, unspecified; E87.6 Hypokalemia; E55.9 Vitamin D deficiency, unspecified; R74.01 Elevation of levels of liver transaminase levels; Z79.899 Other long term (current) drug therapy
CPT/HCPCS: 36415; 74176; 76604; 80053; 80307; 81001; 85025; 85610; 85730; 86850; 86900; 86901; 87040; 87070; 87077; 87081; 87186; 87205; 96374; 96375; 99291; G0378; J2001; J2250; J2405; J2543; J2704

== ENCOUNTER 2024-01-21 09:56 | Inpatient (IN) | payer MEDICAID ==
[~2024-01-21] VITALS: Ht 175.3 cm; Wt 64.7 kg
[~2024-01-21 09:56] MED LIST changes: +ACET-1882 PO; +CIPR250T26 PO; +DOXY1CAP58 PO; -IBUP200C14 PO; +MET500T PO; -ZINC220C10 PO
--- NOTE | 2024-01-21 11:13 | ED.PDOC ---
Back pain HPI HPI Comments A 43 YEAR OLD MALE PRESENTS TO THE ED WITH COMPLAINT OF BACK PAIN. PATIENT REPORTS HE HAD A CHOLECYSTECTOMY PERFORMED ON 11/15, BUT SINCE THEN, HE HAS BEEN EXPERIENCING MID TO LOWER BACK PAIN CONSTANTLY, WORSE AFTER HE SLEEPS. PATIENT RELAYS THAT HIS PCP ORDERED AN MRI WITHOUT CONTRAST A WEEK AGO WITH FINDINGS REPORTING L5-S1 DEGENERATION AND POSSIBLE T11-T12 OSTEOMYELITIS. PATIENT STATES HIS PCP ADVISED HIM TO BE SEEN BY THE ED TO MRI WITH CONTRAST L-SPINE TO RULE OUT OSTEOMYELITIS. THERE IS NO SADDLE ANESTHESIA, URINARY OR BOWEL INCONTINENCE. PATIENT DENIES FEVER, CHILLS, SHORTNESS OF BREATH, CHEST PAIN, ABDOMINAL PAIN, NAUSEA, VOMITING, HEADACHE, OR OTHER COMPLAINTS. NO OTHER SYMPTOMS OR MODIFYING FACTORS AT THIS TIME. Chief Complaint: Back Pain Time Seen by MD: 11:08 Reviewed Notes: Nurses Notes, Medications, Allergies Allergies: Coded Allergies: NO KNOWN ALLERGIES (Unverified , 10/22/23) Home Meds Active Scripts Doxycycline (Monohydrate) (Doxycycline) 100 Mg Cap, 100 MG PO BID for 7 Days, #14 CAP Prov:ROSENDO ASENCIO 11/20/23 Metronidazole (Metronidazole) 500 Mg Tab, 500 MG PO TID for 5 Days, #15 TAB Prov:ROSENDO ASENCIO 11/17/23 Ciprofloxacin Hydrochloride (Ciprofloxacin HCl) 250 Mg Tab, 250 MG PO BID for 5 Days, #10 TAB Prov:ROSENDO ASENCIO 11/17/23 Acetaminophen (Acetaminophen) 325 Mg Tab, 650 MG PO Q6HP PRN for 10 Days, #80 TAB Prov:ROSENDO ASENCIO 11/17/23 Cholecalciferol (Vitamin D3 Super Strength) 2,000 Unit Cap, 2000 UNIT PO DAILY for 10 Days, #10 CAP Prov:MELISSA ARAUJO MD 10/29/23 Ascorbic Acid (VITAMIN C TABLET) 500 Mg Tb, 1 TAB PO BID, #20 TAB Prov:MELISSA ARAUJO MD 10/29/23 Reported Medications Tramadol Hcl (Tramadol Hcl) 50 Mg Tab, 50 MG PO, TAB 10/23/23 Information Source: Patient Mode of Arrival: Ambulatory Timing: Months Duration: Since onset Location of Back pain: (R) Lower back, (R) Thoracic Severity: Moderate Prehospital treatment: None Quality: Aching Onset: Spontaneous History of: Other (CHOLECYSTECTOMY 11/15) Modifying Factors: Nothing Associated signs and symptoms: None Past Medical History PAST MEDICAL HISTORY: Gallstones Surgical History: Cholecystectomy Family History Family History: Reviewed,noncontributory to illness, Unknown Social History Smoker: Non-Smoker Alcohol: Occasionally Drugs: Denies Drug Use Lives In: Home Constitutional: denies: chills, diaphoresis, fatigue, fever, malaise, sweats, weakness, others EENTM: denies: blurred vision, double vision, ear bleeding, ear discharge, ear drainage, ear pain, ear ringing, eye pain, eye redness, hearing loss, mouth pain, mouth swelling, nasal discharge, nose bleeding, nose congestion, nose pain, photophobia, tearing, throat pain, throat swelling, voice changes, others Respiratory: denies: cough, hemoptysis, orthopnea, SOB at rest, shortness of breath, SOB with excertion, stridor, wheezing, others Cardiovascular: denies: chest pain, dizzy spells, diaphoresis, Dyspnea on exertion, edema, irregular heart beat, left arm pain, lightheadedness, palpitations, PND, syncope, others Gastrointestinal: denies: abdomen distended, abdominal pain, blood streaked bowels, constipated, diarrhea, dysphagia, difficulty swallowing, hematemesis, melena, nausea, poor appetite, poor fluid intake, rectal bleeding, rectal pain, vomiting, others Genitourinary: denies: burning, dysuria, flank pain, frequency, hematuria, incontinence, penile discharge, penile sore, pain, testicle pain, testicle swelling, urgency, others Neurological: denies: dizziness, fainting, headache, left sided numbness, left sided weakness, numbness, paresthesia, pre-existing deficit, right sided numbness, right sided weakness, seizure, speech problems, tingling, tremors, weakness, others Musculoskeletal: reports: back pain (MID TO LOWER BACK), muscle pain; denies: gout, joint pain, joint swelling, muscle stiffness, neck pain, others Integumetry: denies: bruises, change in color, change in hair/nails, dryness, laceration, lesions, lumps, rash, wounds, others Allergic/Immunocompromised: denies: Difficulty Healing, Frequent Infections, Hives, Itching, others Hematologic/Lymphatic: denies: anemia, blood clots, easy bleeding, easy bruising, swollen glands, others Endocrine: denies: excessive hunger, excessive sweating, excessive thirst, excessive urination, flushing, intolerance to cold, intolerance to heat, unexplained weight gain, unexplained weight loss, others Psychiatric: denies: anxiety, bipolar disorder, depression, hopeless, panic disorder, schizophrenia, sleepless, suicidal, others All Other Systems: Reviewed and Negative Physical Exam General Appearance: No Apparent Distress, Normal HEENT: Normal ENT Inspection, PERRL/EOMI Neck: Full Range of Motion, Non-Tender, Normal, Normal Inspection Respiratory: Chest Non-Tender, Lungs Clear, No Accessory Muscle Use, No Res piratory Distress, Normal Breath Sounds Cardiovascular: No Edema, No JVD, No Murmur, No Gallop, Normal Peripheral Pulses, Regular Rate/Rhythm Breast Exam: Deferred Gastrointestinal: No Organomegaly, Non Tender, No Pulsatile Mass, Normal Bowel Sounds, Soft Genitalia: Deferred Pelvic: Deferred Rectal: Deferred Extremities: No calf tenderness, Normal capillary refill, Normal inspection, Normal range of motion, Non-tender, No pedal edema Musculoskeletal : Location: Bilateral Extremity Location: Back Apperance: Tenderness: Moderate (LOW BACK, NO BONY TENDERNESS, REDNESS AND SWELLING. ) Neurologic: Alert, switching clerk II-XII nml as Tested, No Motor Deficits, Normal Affect, Normal Mood, No Sensory Deficits Cerebellar Function: Normal Reflexes: Normal Skin: Dry, Normal Color, Warm Peripheral Pulses: 2+ carotid (R), 2+ carotid (L) Lymphatic: No Adenopathy Was a procedure done? Was a procedure done?: No Back Pain Differential Dx Differential Diagnosis: Musculoskeletal Pain, Other (DDD OF LOW BACK, SUSPECT OSTEOMYELITIS OF LOW BACK ) X-Ray, Labs, Meds, VS Vital Signs Date Time Temp Pulse Resp B/P (MAP) Pulse Ox O2 Delivery O2 Flow Rate FiO2 01/21/24 14:26 85 16 108/73 (85) 100 01/21/24 13:03 80 18 97 Room Air* 0 21 01/21/24 11:16 98.6 105 18 140/91 (107) 100 98.6 01/21/24 11:16 105 18 100 Room Air 01/21/24 10:44 98.6 105 18 140/91 (107) 100 Lab Test 01/21/24 11:01/21/24 11:06 Range/Units White Blood Count 10.9 H 4.4-10.8 10^3/uL Red Blood Count 5.02 4.5-5.90 10^6/uL Hemoglobin 14.4 13.5-17.5 g/dL Hematocrit 42.0 41.0-53.0 % Mean Corpuscular Volume 83.7 80.0-100.0 fL Mean Corpuscular Hemoglobin 28.6 28.0-32.0 pg Mean Corpuscular Hemoglobin Concent 34.2 32.0-36.0 g/dL Red Cell Distribution Width 13.7 11.8-14.3 % Platelet Count 532 H 140-450 10^3/uL Mean Platelet Volume 7.1 6.9-10.8 fL Neutrophils (%) (Auto) 67.4 37.0-80.0 % Lymphocytes (%) (Auto) 25.6 10.0-50.0 % Monocytes (%) (Auto) 5.2 0.0-12.0 % Eosinophils (%) (Auto) 0.8 0.0-7.0 % Basophils (%) (Auto) 1.0 0.0-2.0 % Neutrophils # (Auto) 7.4 1.6-8.6 10 ^3/uL Lymphocytes # (Auto) 2.8 0.4-5.4 10 ^3/uL Monocytes # (Auto) 0.6 0-1.3 10 ^3/uL Eosinophils # (Auto) 0.1 0-0.8 10 ^3/uL Basophils # (Auto) 0.1 0-0.2 10 ^3/uL Nucleated Red Blood Cells 0.0 % Sodium Level 138 136-145 mmol/L Potassium Level 4.1 3.5-5.1 mmol/L Chloride Level 103 98-107 mmol/L Carbon Dioxide Level 26 20-31 mmol/L Anion Gap 9 5-15 Blood Urea Nitrogen 9 9-23 mg/dL Creatinine 0.87 0.700-1.30 mg/dL Glomerular Filtration Rate Calc 110 >90 mL/min BUN/Creatinine Ratio 10.3 10.0-20.0 Serum Glucose 99 74-106 mg/dL Lactic Acid Level 0.9 0.4-2.0 mmol/L Calcium Level 10.0 8.7-10.4 mg/dL C-Reactive Protein High Sensitivity 2.51 H <1.0 mg/dL Plasma/Serum Blood Alcohol 3.6 <10 mg/dL Urine Color Colorless Yellow Urine Clarity Clear Clear Urine pH 6.5 5.0-9.0 Urine Specific [place] 1.006 1.001-1.035 Urine Protein Negative Negative Urine Ketones Negative Negative Urine Blood Negative Negative /uL Urine Nitrite Negative Negative Urine Bilirubin Negative Negative Urine Urobilinogen Normal Negative mg/dL Urine Leukocyte Esterase Negative Negative /uL Urine RBC <1 0 - 3 /hpf Urine WBC None seen 0 - 3 /hpf Urine Squamous Epithelial Cells None seen <5 /hpf Urine Bacteria None seen None Seen /hpf Urine Glucose Normal Normal mg/dL Current Medications Medications (Trade) Dose Ordered Sig/Eliza Route Start Time Stop Time Status Last Admin Piperacillin Sod/ Tazobactam Sod 100 ml @ 100 mls/hr ONCE ONCE IV 01/21/24 12:30 01/21/24 13:29 DC 01/21/24 12:58 Vancomycin HCl 200 ml @ 200 mls/hr ONCE ONCE IV 01/21/24 12:30 01/21/24 13:29 DC 01/21/24 13:28 Ketorolac Tromethamine (Toradol Injection) 30 mg ONCE ONCE IV 01/21/24 12:30 01/21/24 12:33 DC 01/21/24 12:58 Sodium Chloride 1,000 ml @ 125 mls/hr Q8H ONCE IV 01/21/24 12:30 01/21/24 20:29 01/21/24 12:58 X-Ray, Labs, Meds, VS Comment PATIENT GIVEN: ZOSYN 3.75G, VANCOMYCIN 1G, AND TORADOL 30MG PATIENT BROUGHT IN REPORT OF PREVIOUS MRI STUDY WITHOUT IV CONTRAST, UNABLE TO RULE OUT OSTEOMYELITIS. PATIENT IS TO BE ADMITTED FOR MRI STUDY WITH IV CONTRAST TO RULE OUT OSTEOMYELITIS AND FOR FURTHER EVALUATION. Time of 1ST Reevaluation: 12:20 Reevaluation 1ST: Unchanged Patient Education/Counseling: Diagnosis, Treatment Family Education/Counseling: Diagnosis, Treatment, No Family Present Departure 1 Departure Time of Disposition: 12:23 Impression: Primary Impression: DDD (degenerative disc disease), lumbosacral Qualified Codes: M51.370 - Other intervertebral disc degeneration, lumbosacral region with discogenic back pain only Additional Impressions: Protruded lumbar disc Osteomyelitis of lumbar spine Disposition: ADMITTED INPATIENT Admit to: Med Surg Condition: Serious Critical Care Note Critical Care Time?: No Stability Stability form required: No Unstable for transfer: Requires medication, ED Physician Assesment, Possible rapid decline Heart Score Heart Score: Heart Score Response (Comments) Value History N/A 0 EKG N/A 0 Age N/A 0 Risk Factors N/A 0 Troponin N/A 0 Total 0 I personally scribed for SELENE CUENCA ([email or web address]) on 01/21/24 at 11:13. Electronically submitted by Hay Sandoval ([email or web address]). I personally scribed for SELENE CUENCA ([email or web address]) on 01/21/24 at 12:26. Electronically submitted by Hay Sandoval ([email or web address]). I personally scribed for SELENE CUENCA ([email or web address]) on 01/21/24 at 12:28. Electronically submitted by Hay Sandoval ([email or web address]). SELENE CUENCA Jan 21, 2024 11:13
[2024-01-21 11:39] LABS: Urine Bacteria None Seen /hpf (None Seen); Urine WBC None Seen /hpf (0 - 3)
[2024-01-21 11:46] LABS: Basophils # (auto) 0.1 10 ^3/uL (0-0.2); Eosinophils # (auto) 0.1 10 ^3/uL (0-0.8); Hemoglobin 14.4 g/dL (13.5-17.5); Lymphocytes # (auto) 2.8 10 ^3/uL (0.4-5.4); Monocytes # (auto) 0.6 10 ^3/uL (0-1.3); Neutrophils # (auto) 7.4 10 ^3/uL (1.6-8.6)
[2024-01-21 11:48] LABS: Eosinophils % (auto) 0.8 % (0.0-7.0); Lymphocytes % (auto) 25.6 % (10.0-50.0); Mean Corpuscular Hemoglobin 28.6 pg (28.0-32.0); Mean Corpuscular Hgb Conc. 34.2 g/dL (32.0-36.0); Mean Corpuscular Volume 83.7 fL (80.0-100.0); Monocytes % (auto) 5.2 % (0.0-12.0); Neutrophils % (auto) 67.4 % (37.0-80.0); Platelet Count (auto) 532 10^3/uL (140-450); Red Blood Cells 5.02 10^6/uL (4.5-5.90); Red Cell Distribution Width 13.7 % (11.8-14.3); White Blood Cell 10.9 10^3/uL (4.4-10.8)
[2024-01-21 11:59] LABS: Chloride 103 mmol/L (98-107); Potassium 4.1 mmol/L (3.5-5.1); Sodium 138 mmol/L (136-145)
[2024-01-21 12:00] LABS: Anion Gap 9 (5-15); Carbon Dioxide 26 mmol/L (20-31)
[2024-01-21 12:05] LABS: BUN/Creatinine Ratio 10.3 (10.0-20.0); Blood Urea Nitrogen 9 mg/dL (9-23); Glucose 99 mg/dL (74-106)
[2024-01-21 12:06] LABS: Blood Alcohol 3.6 mg/dL (<10)
[2024-01-21 12:16] LABS: CRP High Sensitivity 2.51 mg/dL (<1.0)
[2024-01-21 12:18] LABS: Urine Blood Negative /uL (Negative); Urine Clarity Clear (Clear); Urine Color Colorless (Yellow); Urine Protein, UAD Negative (Negative); Urine Specific Gravity 1.006 (1.001-1.035); Urine Urobilinogen Normal (Negative); Urine pH 6.5 (5.0-9.0)
[2024-01-21] MEDS: SODIUM CHLORIDE 0.9% 1,000 ML IV ONE ×2 (12:58→16:15)
[2024-01-21] MEDS: KETOROLAC TROMETH 30 MG/ML 1ML VIAL IV ONE (12:58)
[2024-01-21] MEDS: PIPERACILLIN-TAZOB 3.375GM 100 ML IV ONE (12:58)
[2024-01-21 13:03] VITALS: PULSE 80; RESP 18; O2SAT 97
[2024-01-21] MEDS: VANCOMYCIN 1GM/200ML PREMIX 200 ML IV ONE (13:28)
[2024-01-21] MEDS ORDERED: BACL20TA PO (17:25)
[2024-01-21] MEDS ORDERED: KETOROLAC TROMETH 30 MG/ML 1ML VIAL IV PRN (17:30)
--- NOTE | 2024-01-21 17:53 | DVHHP2 ---
History of Present Illness Reason for Visit: Back pain rule out osteomyelitis History of Present Illness 43-year-old male presented to the ED with complaint of back pain. Patient reports he had a cholecystectomy performed on 11/16/2023, since then he has been experiencing mid to lower back pain constantly. Patient reports that it is made worse after sleeping. Patient states his PCP ordered an MRI without contrast to week ago with findings reporting L5 through S1 degeneration and possible T11 through T12 osteomyelitis. Patient states his PCP advised him to come to the ED for MRI with contrast to rule out osteomyelitis. Patient has no saddle anesthesia, urinary or bowel incontinence. Patient is ambulatory. Patient does deny fever, chills, shortness of breath, chest pain, abdominal pain, nausea, vomiting, headache or any other complaints. Patient was admitted for further evaluation medical management. Past Medical History Osteoarthritis, Gallstones Past Surgical History Cholecystectomy Family History Reviewed noncontributory to the management of this case Smoke: No ALCOHOL: occassional Drugs: None Lives: with Family Review of Systems Constitutional: No: Fever, Chills, Sweats, Weakness, Malaise, Other Eyes: No: Pain, Vision change, Conjunctivae inflammation, Eyelid inflammation, Other, Redness ENT: No: Ear pain, Ear discharge, Nose pain, Nose discharge, Nose congestion, Mouth pain, Mouth swelling, Throat pain, Throat swelling, Other Respiratory: No: Cough, Dry, Shortness of breath, SOB with excertion, Wheezing, Hemoptysis, Pleuritic Pain, Sputum, Wheezing, Other Cardiovascular: No: Chest Pain, Palpitations, Orthopnea, Paroxysmal Noc. Dyspnea, Edema, Lt Headedness, Other Gastrointestinal: No: Nausea, Vomiting, Abdominal Pain, Diarrhea, Constipation, Melena, Hematochezia, Other Genitourinary: No Dysuria, No Frequency, No Incontinence, No Hematuria, No Retention, No Other Musculoskeletal: back pain; No: other, neck pain, shoulder pain, arm pain, hand pain, leg pain, foot pain Skin: No: Rash, Lesions, Jaundice, Bruising, Other Neurological: No: Weakness, Numbness, Incoordination, Change in speech, Confusion, Seizures, Other Allergies: Coded Allergies: NO KNOWN ALLERGIES (Unverified , 10/22/23) Medications Current Medications Medications Dose Ordered Sig/Eliza Route Start Time Stop Time Status Last Admin Dose Admin Acetaminophen/ Hydrocodone Bitart 1 tab Q4HP PRN PO 01/21/24 17:30 Baclofen 20 mg Q12HP PO 01/21/24 22:00 Exam Vital Signs Vital Signs Date Time Temp Pulse Resp B/P (MAP) Pulse Ox O2 Delivery O2 Flow Rate FiO2 01/21/24 14:26 85 16 108/73 (85) 100 01/21/24 13:03 Room Air* 0 21 01/21/24 11:16 98.6 98.6 General Appearance: Alert, Oriented X3, Cooperative, No acute distress HEENT: Atraumatic, PERRLA, EOMI, Mucous membr. moist/pink Respiratory: Clear to auscultation, Normal air movement Cardiovascular: Regular rate, Normal S1, Normal S2, No murmurs Abdominal: Normal bowel sounds, Soft, No tenderness, No hepatospenomegaly, No masses Extremities: No clubbing, No cyanosis, No edema, Normal pulses, No tender ness/swelling Skin: No rashes, No breakdown, No significant lesion Neuro: Normal gait, Normal speech, Strength at 5/5 X4 ext, Normal tone, Sensation intact, Cranial nerves 3-12 NL Psych/Mental Status: Mental status NL, Mood NL Labs/Xrays Labs, previous admits and ED notes reviewed Labs Test 01/21/24 11:20 01/21/24 11:06 Range/Units White Blood Count 10.9 H 4.4-10.8 10^3/uL Red Blood Count 5.02 4.5-5.90 10^6/uL Hemoglobin 14.4 13.5-17.5 g/dL Hematocrit 42.0 41.0-53.0 % Mean Corpuscular Volume 83.7 80.0-100.0 fL Mean Corpuscular Hemoglobin 28.6 28.0-32.0 pg Mean Corpuscular Hemoglobin Concent 34.2 32.0-36.0 g/dL Red Cell Distribution Width 13.7 11.8-14.3 % Platelet Count 532 H 140-450 10^3/uL Mean Platelet Volume 7.1 6.9-10.8 fL Neutrophils (%) (Auto) 67.4 37.0-80.0 % Lymphocytes (%) (Auto) 25.6 10.0-50.0 % Monocytes (%) (Auto) 5.2 0.0-12.0 % Eosinophils (%) (Auto) 0.8 0.0-7.0 % Basophils (%) (Auto) 1.0 0.0-2.0 % Neutrophils # (Auto) 7.4 1.6-8.6 10 ^3/uL Lymphocytes # (Auto) 2.8 0.4-5.4 10 ^3/uL Monocytes # (Auto) 0.6 0-1.3 10 ^3/uL Eosinophils # (Auto) 0.1 0-0.8 10 ^3/uL Basophils # (Auto) 0.1 0-0.2 10 ^3/uL Nucleated Red Blood Cells 0.0 % Sodium Level 138 136-145 mmol/L Potassium Level 4.1 3.5-5.1 mmol/L Chloride Level 103 98-107 mmol/L Carbon Dioxide Level 26 20-31 mmol/L Anion Gap 9 5-15 Blood Urea Nitrogen 9 9-23 mg/dL Creatinine 0.87 0.700-1.30 mg/dL Glomerular Filtration Rate Calc 110 >90 mL/min BUN/Creatinine Ratio 10.3 10.0-20.0 Serum Glucose 99 74-106 mg/dL Lactic Acid Level 0.9 0.4-2.0 mmol/L Calcium Level 10.0 8.7-10.4 mg/dL C-Reactive Protein High Sensitivity 2.51 H <1.0 mg/dL Plasma/Serum Blood Alcohol 3.6 <10 mg/dL Urine Color Colorless Yellow Urine Clarity Clear Clear Urine pH 6.5 5.0-9.0 Urine Specific [place] 1.006 1.001-1.035 Urine Protein Negative Negative Urine Ketones Negative Negative Urine Blood Negative Negative /uL Urine Nitrite Negative Negative Urine Bilirubin Negative Negative Urine Urobilinogen Normal Negative mg/dL Urine Leukocyte Esterase Negative Negative /uL Urine RBC <1 0 - 3 /hpf Urine WBC None seen 0 - 3 /hpf Urine Squamous Epithelial Cells None seen <5 /hpf Urine Bacteria None seen None Seen /hpf Urine Glucose Normal Normal mg/dL Assessment/Plan Assessment/Plan Degenerative disc disease, rule out osteomyelitis Admit to medical/surgical MRI with contrast lumbar and thoracic spine Slight leukocytosis could be caused by inflammation- CRP 2.51 Started on prophylactic antibiotics Recommend maintenance specialist consult depending on MRI findings Pain medication p.r.n. FEN/PPX GI and VTE prophylaxis not indicated Regular diet Plan discussed with: Patient My Orders Orders - ULYSSES VEGA Procedure Category Date Status Time Admit ADMIT 01/21/24 Transmitted 17:21 Code Status CODE 01/21/24 Transmitted 17:21 Vital Signs ANABEL 01/21/24 In Process 17:[address] [facility] 01/21/24 In Process Adm. 17:21 Regular Diet DIET 01/21/24 Transmitted Dinner Notify Md Of Changes [facility] 01/21/24 In Process From Base 17:[address] [facility] 01/21/24 In Process 17:21 Basic Metabolic Panel LAB 01/22/24 Verified 04:00 Complete Blood Count LAB 01/22/24 Verified 04:00 Patient Condition ORDERS 01/21/24 Transmitted 17:21 Allergies ANABEL 01/21/24 In Process 17:21 Hydrocodone-Acet PHA 01/21/24 In Process 5/325mg Tab ([place] 17:30 Lumbar With Contrast MRI 01/21/24 Logged 17:21 Thoracic Spine With MRI 01/21/24 Logged 17:21 Baclofen Tablet PHA 01/21/24 In Process (Liorisal Tablet) 22:00 Date of Service: Jan 21, 2024 Billing Provider: ULYSSES VEGA Common Visit Codes: [id number] INP/OBS CARE (HIGH) ULYSSES VEGA Jan 21, 2024 17:53
--- NOTE | 2024-01-21 19:14 | DVH ---
EXAM: MRI THORACIC SPINE WITHOUT HISTORY: OSTEOMYELITIS COMPARISON: None TECHNIQUE: Multiplanar, multisequence MRI was performed. FINDINGS: VERTEBRAE: Normal in alignment and height. There is T2 and STIR hyperintensity in the T11 and T12 ve rtebral bodies . INTERVERTEBRAL DISCS: Minor multilevel disc desiccation. No high-grade central canal or neural yg solis stenosis. No significant impingement of the bilateral exiting nerves and traversing nerve roots. T2 hyperintense signal in the intervertebral disc space at T11-T12. There is destructive changes of the intervertebral disc space at this level. No phlegmon extension is seen into the epidural space . Minimal phlegmon extends into the bilateral T11-T12 neural foramen though is not causing high-grade stenosis SPINAL CORD: Normal morphology and signal without evidence for cord edema or myelomalacia. It termin ates at T12-L1 level. PARASPINAL SOFT TISSUES: Posterior paraspinal soft tissues are intact. There is phlegmon in the anter ior paravertebral soft tissues at the level of T11-T12 spanning 3.2 cm in craniocaudal dimension on s eries 12, image 7. Foci of T2 hyperintensity within this phlegmon is seen. OTHER: None. IMPRESSION: 1. Discitis/ osteomyelitis at T11-T12 with phlegmon in the anterior paravertebral soft tissues at thi s level, spanning a distance of 3.2 cm craniocaudal. 2. No high-grade neural foraminal or spinal stenosis. 3. Minimal phlegmon extends into the bilateral T11-T12 neural foramen without causing significant jacinto nosis
--- NOTE | 2024-01-21 19:25 | DVH ---
EXAM: MRI LUMBAR SPINE WO CONTRAST HISTORY: OSTEO COMPARISON: None TECHNIQUE: MRI was performed utilizing multiple appropriate imaging planes and pulse sequences. FINDINGS: For the purposes of this report, the last square-shaped vertebra is considered L5. Prior to any surg carmen, correlation with lumbar spine radiographs should be done. VERTEBRAE: No significant compression deformity is noted. A subcentimeter hemangioma is seen in left paramedian anterior S1. Partially seen T12 shows diffuse bone marrow edema. Visualized portions of the bilateral sacroiliac joints are unremarkable. SPINAL CORD: Terminates at the L1 level. No evidence of cord edema or myelomalacia within the parti ally visualized conus medullaris. PARASPINAL SOFT TISSUES: Unremarkable. INTERVERTEBRAL DISCS: T12-L1: No disc herniation, central canal stenosis or neural foramina narrowing. The posterior facet s and ligamentum flavum are unremarkable. L1-L2: No disc herniation, central canal stenosis or neural foramina narrowing. The posterior facets and ligamentum flavum are unremarkable. L2-L3: No disc herniation, central canal stenosis or neural foramina narrowing. The posterior facet s and ligamentum flavum are unremarkable. L3-L4: No disc herniation, central canal stenosis or neural foramina narrowing. The posterior face ts and ligamentum flavum are unremarkable. L4-L5: No disc herniation, central canal stenosis or neural foramina narrowing. The posterior face ts and ligamentum flavum are unremarkable. L5-S1: Mild central disc protrusion with mild central canal stenosis without nerve impingement. The posterior facet joints are unremarkable. Neural foramina are patent. OTHER: None. IMPRESSION: 1. The partially seen T12 shows diffuse bone marrow edema which is related to pathology at T11-T12 mo st likely discitis and osteomyelitis. Please refer to the accompanying MRI of the thoracic spine MRI for detailed information. 2. Mild central disc protrusion at L5-S1 with mild central canal stenosis without nerve impingement.
[2024-01-21] MEDS: BACLOFEN 10 MG TAB PO SCH (23:44)
[2024-01-22] VITALS: PULSE 115; RESP 18; O2SAT 97
[2024-01-22 05:15] LABS: Basophils # (auto) 0.1 10 ^3/uL (0-0.2); Basophils % (auto) 0.4 % (0.0-2.0); Eosinophils # (auto) 0.2 10 ^3/uL (0-0.8); Eosinophils % (auto) 1.6 % (0.0-7.0); Hematocrit 33.5 % (41.0-53.0); Lymphocytes # (auto) 1.7 10 ^3/uL (0.4-5.4); Lymphocytes % (auto) 10.8 % (10.0-50.0); Mean Corpuscular Hemoglobin 27.5 pg (28.0-32.0); Mean Corpuscular Volume 83.3 fL (80.0-100.0); Monocytes % (auto) 6.3 % (0.0-12.0); Neutrophils # (auto) 12.4 10 ^3/uL (1.6-8.6); Neutrophils % (auto) 80.9 % (37.0-80.0); Platelet Count (auto) 416 10^3/uL (140-450); Red Blood Cells 4.02 10^6/uL (4.5-5.90); Red Cell Distribution Width 13.2 % (11.8-14.3); White Blood Cell 15.3 10^3/uL (4.4-10.8)
[2024-01-22 05:18] LABS: Anion Gap 10 (5-15); Carbon Dioxide 23 mmol/L (20-31); Chloride 105 mmol/L (98-107); Potassium 3.8 mmol/L (3.5-5.1); Sodium 138 mmol/L (136-145)
[2024-01-22 05:19] LABS: Calcium 9.1 mg/dL (8.7-10.4)
[2024-01-22 05:23] LABS: Glucose 102 mg/dL (74-106)
[2024-01-22 05:24] LABS: BUN/Creatinine Ratio 14.3 (10.0-20.0); Blood Urea Nitrogen 13 mg/dL (9-23)
[2024-01-22 07:30] VITALS: PULSE 103; RESP 14; O2SAT 98
--- NOTE | 2024-01-22 13:39 | DVHPN2 ---
Reviewed: Care Plan, H&P, Labs, Medications, Previous Orders, Radiology Changes from previous H/P or p: No Changes Eyes: No Pain, No Vision change, No Conjunctivae inflammation, No Eyelid inflammation, No Other, No Redness ENT: No Ear pain, No Ear discharge, No Nose pain, No Nose discharge, No Nose congestion, No Mouth pain, No Mouth swelling, No Throat pain, No Throat swelling, No Other Cardiovascular: No Chest Pain, No Palpitations, No Orthopnea, No Paroxysmal Noc. Dyspnea, No Edema, No Lt Headedness, No Other Respiratory: No Cough, No Dry, No Shortness of breath, No SOB with excertion, No Wheezing, No Hemoptysis, No Pleuritic Pain, No Sputum, No Other Gastrointestinal: No Nausea, No Vomiting, No Abdominal Pain, No Diarrhea, No Constipation, No Melena, No Hematochezia, No Other Genitourinary: No Dysuria, No Frequency, No Incontinence, No Hematuria, No Retention, No Other Musculoskeletal: No other, No neck pain, No shoulder pain, No arm pain; back pain; No hand pain, No leg pain, No foot pain Skin: No Rash, No Lesions, No Jaundice, No Bruising, No Other Objective Vitals Vital Signs Date Time Temp Pulse Resp B/P (MAP) Pulse Ox O2 Delivery O2 Flow Rate FiO2 01/22/24 12:57 95 24 99/68 (78) 97 01/22/24 07:30 Room Air* 0 21 01/22/24 07:30 98.4 98.4 Intake/Output Intake and Output 01/22/24 07:00 Intake Total 250 ml Output Total 1050 ml Balance -800 ml Intake Oral 0 ml IV Total 250 ml Output Urine Total 1050 ml Medications Current Medications Medications Dose Ordered Sig/Eliza Route Start Time Stop Time Status Last Admin Dose Admin Acetaminophen/ Hydrocodone Bitart 1 tab Q4HP PRN PO 01/21/24 17:30 Baclofen 20 mg Q12HP PO 01/21/24 22:00 01/21/24 23:44 20 MG Ketorolac Tromethamine 30 mg Q6HPRN PRN IV 01/21/24 17:30 01/26/24 17:29 Laboratory Results Laboratory Tests 01/22/24 04:24 Chemistry Test 01/22/24 04:24 Calcium Level 9.1 mg/dL (8.7-10.4) Urinalysis Test 01/21/24 11:06 Urine Color Colorless (Yellow) Urine Clarity Clear (Clear) Urine pH 6.5 (5.0-9.0) Urine Specific [place] 1.006 (1.001-1.035) Urine Protein Negative (Negative) Urine Ketones Negative (Negative) Urine Blood Negative /uL (Negative) Urine Nitrite Negative (Negative) Urine Bilirubin Negative (Negative) Urine Urobilinogen Normal mg/dL (Negative) Urine Leukocyte Esterase Negative /uL (Negative) Urine RBC <1 /hpf (0 - 3) Urine WBC None seen /hpf (0 - 3) Urine Squamous Epithelial Cells None seen /hpf (<5) Urine Bacteria None seen /hpf (None Seen) Urine Glucose Normal mg/dL (Normal) Labs and/or images reviewed: Labs reviewed by me, Image(s) reviewed by me Assessment/Plan Assessment/Plan Severe low back pain Acute osteomyelitis by T11-12 by MRI: Vancomycin Zosyn consult for spine surgeon Dr. Garibay and ID Dr Suresh Hensley History of cholecystectomy 11/16/2023 after which patient developed back pain Time spent 40 minutes Plan discussed with: Patient Date of Service: Jan 22, 2024 Billing Provider: JOHNNIE YARBROUGH MD Common Visit Codes: [id number] INP/OBS CARE(HIGH) JOHNNIE YARBROUGH MD Jan 22, 2024 13:39
[2024-01-22] MEDS ORDERED: VANCOMYCIN PER PHARMACY 0 MG IV SCH (13:45)
[2024-01-22] MEDS: VANCOMYCIN 1GM/200ML PREMIX 200 ML IV ONE (14:24)
[2024-01-22] MEDS: PIPERACILLIN-TAZOB 3.375GM 100 ML IV SCH (16:06)
[2024-01-22] MEDS: HYDROcodone-ACET 5/325MG TAB PO PRN (18:56)
--- NOTE | 2024-01-22 19:20 | DVHINCON2 ---
Date of service: Jan 22, 2024 Family History: Patient reports no known family medical history. Allergies: Coded Allergies: NO KNOWN ALLERGIES (Unverified , 10/22/23) Home Meds Active Scripts Doxycycline (Monohydrate) (Doxycycline) 100 Mg Cap, 100 MG PO BID for 7 Days, #14 CAP Prov:ROSENDO ASENCIO RESIDENT 11/20/23 Metronidazole (Metronidazole) 500 Mg Tab, 500 MG PO TID for 5 Days, #15 TAB Prov:ROSENDO ASENCIO RESIDENT 11/17/23 Ciprofloxacin Hydrochloride (Ciprofloxacin HCl) 250 Mg Tab, 250 MG PO BID for 5 Days, #10 TAB Prov:ELIFROSENDO [facility] 11/17/23 Acetaminophen (Acetaminophen) 325 Mg Tab, 650 MG PO Q6HP PRN for 10 Days, #80 TAB Prov:ELIFROSENDO RESIDENT 11/17/23 Cholecalciferol (Vitamin D3 Super Strength) 2,000 Unit Cap, 2000 UNIT PO DAILY for 10 Days, #10 CAP Prov:MELISSA ARAUJO MD 10/29/23 Ascorbic Acid (VITAMIN C TABLET) 500 Mg Tb, 1 TAB PO BID, #20 TAB Prov:MELISSA ARAUJO MD 10/29/23 Reported Medications Baclofen (Baclofen) 20 Mg Tab, 1 TAB PO BID 01/21/24 Tramadol Hcl (Tramadol Hcl) 50 Mg Tab, 50 MG PO, TAB 10/23/23 Current Medications Current Medications Medications (Trade) Dose Ordered Sig/Eliza Route PRN Reason Start Time Stop Time Status Last Admin Baclofen (Liorisal Tablet) 20 mg Q12HP PO 01/21/24 22:00 01/21/24 23:44 Vancomycin HCl 0 ml @ 0 mls/hr UD IV 01/22/24 13:45 Piperacillin Sod/ Tazobactam Sod 100 ml @ 25 mls/hr Q8HR IV 01/22/24 14:00 01/22/24 16:06 Vancomycin HCl 200 ml @ 200 mls/hr Q12H IV 01/23/24 00:00 Vital Signs Vital Signs Date Time Temp Pulse Resp B/P (MAP) Pulse Ox O2 Delivery O2 Flow Rate FiO2 01/22/24 18:53 91 20 103/70 (81) 96 01/22/24 07:30 Room Air* 0 21 11/15/24 07:30 98.4 98.4 Labs/Diagnostic Data Labs Test 01/22/24 04:24 01/21/24 11:20 01/21/24 11:06 Range/Units White Blood Count 15.3 #H 4.4-10.8 10^3/uL Red Blood Count 4.02 L 4.5-5.90 10^6/uL Hemoglobin 11.0 #L 13.5-17.5 g/dL Hematocrit 33.5 #L 41.0-53.0 % Mean Corpuscular Volume 83.3 80.0-100.0 fL Mean Corpuscular Hemoglobin 27.5 L 28.0-32.0 pg Mean Corpuscular Hemoglobin Concent 33.0 32.0-36.0 g/dL Red Cell Distribution Width 13.2 11.8-14.3 % Platelet Count 416 140-450 10^3/uL Mean Platelet Volume 7.3 6.9-10.8 fL Neutrophils (%) (Auto) 80.9 H 37.0-80.0 % Lymphocytes (%) (Auto) 10.8 10.0-50.0 % Monocytes (%) (Auto) 6.3 0.0-12.0 % Eosinophils (%) (Auto) 1.6 0.0-7.0 % Basophils (%) (Auto) 0.4 0.0-2.0 % Neutrophils # (Auto) 12.4 H 1.6-8.6 10 ^3/uL Lymphocytes # (Auto) 1.7 0.4-5.4 10 ^3/uL Monocytes # (Auto) 1.0 0-1.3 10 ^3/uL Eosinophils # (Auto) 0.2 0-0.8 10 ^3/uL Basophils # (Auto) 0.1 0-0.2 10 ^3/uL Nucleated Red Blood Cells 0.0 % Sodium Level 138 136-145 mmol/L Potassium Level 3.8 3.5-5.1 mmol/L Chloride Level 105 98-107 mmol/L Carbon Dioxide Level 23 20-31 mmol/L Anion Gap 10 5-15 Blood Urea Nitrogen 13 9-23 mg/dL Creatinine 0.91 0.700-1.30 mg/dL Glomerular Filtration Rate Calc 107 >90 mL/min BUN/Creatinine Ratio 14.3 10.0-20.0 Serum Glucose 102 74-106 mg/dL Calcium Level 9.1 8.7-10.4 mg/dL Lactic Acid Level 0.9 0.4-2.0 mmol/L C-Reactive Protein High Sensitivity 2.51 H <1.0 mg/dL Plasma/Serum Blood Alcohol 3.6 <10 mg/dL Urine Color Colorless Yellow Urine Clarity Clear Clear Urine pH 6.5 5.0-9.0 Urine Specific [place] 1.006 1.001-1.035 Urine Protein Negative Negative Urine Ketones Negative Negative Urine Blood Negative Negative /uL Urine Nitrite Negative Negative Urine Bilirubin Negative Negative Urine Urobilinogen Normal Negative mg/dL Urine Leukocyte Esterase Negative Negative /uL Urine RBC <1 0 - 3 /hpf Urine WBC None seen 0 - 3 /hpf Urine Squamous Epithelial Cells None seen <5 /hpf Urine Bacteria None seen None Seen /hpf Urine Glucose Normal Normal mg/dL Problems(with codes): (1) Osteomyelitis of lumbar spine (2) Protruded lumbar disc (3) Elevated liver enzymes (4) Acute abdominal pain (5) Fever, unspecified Plan/Recommendation ASSESSMENT AND PLAN: ID Problem List: - Osteoarthritis - Gallstones (status post cholecystectomy) - Diabetes mellitus - 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 male with a past medical history of osteoarthritis, gallstones (status post cholecystectomy on November 15), and diabetes mellitus, who presents with mid to lower back pain. The pain has been present since his cholecystectomy and is worse after sleeping. An MRI done a week ago showed L1 to L5-S1 degeneration and possible T11-T12 osteomyelitis with phlegmon of the anterior paraspinal soft tissues at this level spanning a distance of 3.2 cm. He has no lower extremity weakness, no bowel or bladder incontinence, and no paresthesias. Physical exam is notable for no tenderness on his back, no swelling, redness, edema, or open wounds. Laboratory studies show elevated WBC counts up to 11.53, current WBC of 10.9, hemoglobin 14.4, platelets 532, and CRP elevated at 2.51. MRI of the thoracic spine shows discitis and osteomyelitis of T11-T12 with phlegmon. MRI of the lumbar spine shows mild central disc protrusion at L5-S1 with mild central canal stenosis with nerve impingement. Plan: - Recommend obtaining blood cultures, as the most common causes of osteomyelitis are hematogenous in etiology. - Continue vancomycin and ceftriaxone for now. - Recommend neurosurgical consultation for evaluation of debridement if indicate d; if incision and drainage is done, please collect bacterial and anaerobic cultures. - Anticipate patient needing six weeks of IV antibiotics at minimum, whether surgery is performed or not. - Recommend PICC line placement once blood cultures are confirmed to be negative. - Given the most likely etiology of the thoracolumbar spine osteomyelitis is from recent surgery (cholecystectomy), recommend CT abdomen and pelvis to further evaluate for ongoing abscess in this region. - Recommend hepatic panel and bilirubin to evaluate for hepatic abnormalities. - Given proximity of T11-T12 to lungs, recommend baseline chest X-ray. Isolation Precautions: standard Assessment and plan were discussed with the patient as written above. Plan is subject to change pending incorporation of new incoming information/diagnostics. Updates may be added as addendum at the bottom (or top) of this note. Thank you for interesting consult. ID will continue to follow. Please contact Infectious Disease for any questions or concerns. Daily Hensley M.D. [facility] History: The patient's chart and medications were reviewed in detail and the patient was seen and examined. History obtained from: patient Mr. Choe is a 43 y.o. male with a past medical history of osteoarthritis, gallstones (status post cholecystectomy on November 15), and diabetes mellitus, who presents with mid to lower back pain. The pain has been present since his cholecystectomy and is worse after sleeping. An MRI was done a week ago which showed L1 to L5-S1 degeneration and possible T11-T12 osteomyelitis. Patient states that his primary care doctor advised him to come to the emergency room. He denies lower extremity weakness, bowel or bladder incontinence, and paresthesias. He denies fever, chills, or night sweats. He reports no recent trauma or injury to his back. Review of Systems: A complete 10 system review of systems was completed and negative except as noted in the HPI or here. ROS: - CONSTITUTIONAL: Denies weight loss, fever, and chills. - HEENT: Denies changes in vision and hearing. - RESPIRATORY: Denies shortness of breath and cough. - CV: Denies palpitations and chest pain. - GI: Denies abdominal pain, nausea, vomiting, and diarrhea. - : Denies dysuria and urinary frequency. - MSK: Reports mid to lower back pain. Denies myalgia and joint pain elsewhere. - SKIN: Denies rash and pruritus. - NEUROLOGICAL: Denies headache and syncope. - PSYCHIATRIC: Denies recent changes in mood. Denies anxiety and depression. Past Medical History: Diagnosis - Osteoarthritis - Gallstones (status post cholecystectomy on 11/16/2023) - Diabetes mellitus Past Surgical History: - Cholecystectomy on November 16, 2023 Home Medications: History reviewed. No pertinent medications. Allergies: Allergies No known drug allergies Family History: Family history not contributory. Social History: Socioeconomic History - Marital status: Not provided - Number of children: Not provided - Occupational History: Not provided Tobacco Use - Smoking status: Never smoker Vaping Use - Vaping status: Never used Substance and Sexual Activity - Alcohol use: Denies - Drug use: Denies - Sexual activity: Not on file Other Topics Concern - Not on file Social Determinants of Health - Not on file Objective: Vital Signs on Arrival: Temp: 98.6 F (37 C)?BP: 108/73 mmHg?Pulse: 85 bpm?Resp: 16?SpO2: 100% on room air Most Recent Vital Signs: Temp: 98.6 F (37 C)?BP: 108/73 mmHg?Pulse: 85 bpm?Resp: 16?SpO2: 100% on room air Admission Weight: Weight: Not provided?BMI: Not provided Physical Exam: General: NAD Neck: Supple. No masses. HEENT: PERRL. Normal lids and conjunctiva. Moist mucous membranes. Oropharynx without lesions, exudates, or excessive erythema. Normal appearance of the external aspects of the nose and ears. Heart: Regular rhythm, normal rate. No murmur. No lower extremity edema. Lungs: Normal respiratory effort. Clear to auscultation bilaterally. No wheezes. No crackles. Abdomen: Soft. Non-tender. Non-distended. No masses or abdominal hernia. Msk: No tenderness of the back. No swelling, redness, or edema. No open wounds. Normal strength and tone in all 4 limbs. Skin: Warm and dry, no rashes. Neuro: Alert and oriented. No facial droop or slurred speech. Extra- ocular movements intact. Sensation intact to soft touch in all 4 limbs. Psych: Appropriate mood. Full affect. Oriented to person, place, time, and situation. Lines: Active Lines - No active lines. Diagnostic Studies: Available diagnostic studies were reviewed personally. Significant relevant results and findings are outlined below or addressed in the Assessment and Plan above. Pertinent Imaging: MRI Thoracic Spine: - Discitis and osteomyelitis of T11-T12 with phlegmon of the anterior paraspinal soft tissues at this level spanning a distance of 3.2 cm. MRI Lumbar Spine: - L1 to L5-S1 degeneration. - Mild central disc protrusion at L5-S1 with mild central canal stenosis with nerve impingement. Laboratory Studies: - WBC: 10.9 (elevated up to 11.53) - Hemoglobin: 14.4 - Platelets: 532 - CRP: 2.51 (notably elevated) Plan discussed with: Patient DAILY HENSLEY MD Jan 22, 2024 19:20
[2024-01-22 19:27] VITALS: PULSE 103; RESP 16; O2SAT 96
[2024-01-22 23:12] VITALS: BP 111/71; PULSE 92; RESP 18; TEMP 97.8; O2SAT 96
[2024-01-22] MEDS: VANCOMYCIN 1GM/200ML PREMIX 200 ML IV SCH (23:12)
[2024-01-23] MEDS: PIPERACILLIN-TAZOB 3.375GM 100 ML IV SCH (00:29)
[2024-01-23 05:00] VITALS: BP 98/63; PULSE 98; RESP 17; TEMP 98; O2SAT 96
[2024-01-23 07:30] LABS: Basophils # (auto) 0.1 10 ^3/uL (0-0.2); Basophils % (auto) 0.8 % (0.0-2.0); Eosinophils # (auto) 0.6 10 ^3/uL (0-0.8); Eosinophils % (auto) 5.7 % (0.0-7.0); Hematocrit 35.5 % (41.0-53.0); Hemoglobin 11.9 g/dL (13.5-17.5); Lymphocytes # (auto) 1.8 10 ^3/uL (0.4-5.4); Lymphocytes % (auto) 16.1 % (10.0-50.0); Mean Corpuscular Hemoglobin 28.4 pg (28.0-32.0); Mean Corpuscular Hgb Conc. 33.7 g/dL (32.0-36.0); Mean Corpuscular Volume 84.3 fL (80.0-100.0); Monocytes # (auto) 0.7 10 ^3/uL (0-1.3); Monocytes % (auto) 6.1 % (0.0-12.0); Neutrophils # (auto) 8.2 10 ^3/uL (1.6-8.6); Neutrophils % (auto) 71.3 % (37.0-80.0); Platelet Count (auto) 374 10^3/uL (140-450); Red Blood Cells 4.21 10^6/uL (4.5-5.90); Red Cell Distribution Width 13.5 % (11.8-14.3); White Blood Cell 11.5 10^3/uL (4.4-10.8)
[2024-01-23 08:47] LABS: Albumin 3.7 g/dL (3.2-4.8); Bilirubin, Direct 0.1 mg/dL (<0.3); Bilirubin, Total 0.4 mg/dL (0.2-1.0); Total Protein 7.3 g/dL (5.7-8.2)
[2024-01-23 09:00] VITALS: BP 102/73; PULSE 97; RESP 20; TEMP 97.7; O2SAT 95
--- NOTE | 2024-01-23 11:12 | DVHPN2 ---
Reviewed: Care Plan, H&P, Labs, Medications, Previous Orders, Radiology Changes from previous H/P or p: No Changes Eyes: No Pain, No Vision change, No Conjunctivae inflammation, No Eyelid inflammation, No Other, No Redness ENT: No Ear pain, No Ear discharge, No Nose pain, No Nose discharge, No Nose congestion, No Mouth pain, No Mouth swelling, No Throat pain, No Throat swelling, No Other Cardiovascular: No Chest Pain, No Palpitations, No Orthopnea, No Paroxysmal Noc. Dyspnea, No Edema, No Lt Headedness, No Other Respiratory: No Cough, No Dry, No Shortness of breath, No SOB with excertion, No Wheezing, No Hemoptysis, No Pleuritic Pain, No Sputum, No Other Gastrointestinal: No Nausea, No Vomiting, No Abdominal Pain, No Diarrhea, No Constipation, No Melena, No Hematochezia, No Other Genitourinary: No Dysuria, No Frequency, No Incontinence, No Hematuria, No Retention, No Other Musculoskeletal: No other, No neck pain, No shoulder pain, No arm pain; back pain; No hand pain, No leg pain, No foot pain Skin: No Rash, No Lesions, No Jaundice, No Bruising, No Other Objective Vitals Vital Signs Date Time Temp Pulse Resp B/P (MAP) Pulse Ox O2 Delivery O2 Flow Rate FiO2 01/23/24 09:00 97.7 97 20 102/73 (83) 95 97.7 01/22/24 22:53 Room Air* 0 21 Intake/Output Intake and Output 01/23/24 07:00 Intake Total 1025 ml Balance 1025 ml Intake Oral 600 ml IV Total 425 ml # Voids 1 Medications Current Medications Medications Dose Ordered Sig/Eliza Route Start Time Stop Time Status Last Admin Dose Admin Acetaminophen/ Hydrocodone Bitart 1 tab Q4HP PRN PO 01/21/24 17:30 01/22/24 18:56 1 TAB Baclofen 20 mg Q12HP PO 01/21/24 22:00 01/22/24 22:26 20 MG Ketorolac Tromethamine 30 mg Q6HPRN PRN IV 01/21/24 17:30 01/26/24 17:29 Vancomycin HCl 0 ml @ 0 mls/hr UD IV 01/22/24 13:45 Vancomycin HCl 200 ml @ 200 mls/hr Q12H IV 01/23/24 00:00 01/22/24 23:12 200 MLS/HR Ceftriaxone Sodium/Dextrose 50 ml @ 50 mls/hr Q12HR@, IV 01/23/24 09:00 Laboratory Results Laboratory Tests 01/22/24 04:24 01/23/24 06:53 Chemistry Test 01/23/24 06:53 Albumin 3.7 g/dL (3.2-4.8) Total Protein 7.3 g/dL (5.7-8.2) LFT Test 01/23/24 06:53 Alanine Aminotransferase (ALT) 14 U/L (7-40) Alkaline Phosphatase 116 U/L (46-116) Aspartate Amino Transferase (AST) 15 U/L (13-40) Direct Bilirubin 0.1 mg/dL (<0.3) Total Bilirubin 0.4 mg/dL (0.2-1.0) Urinalysis Test 01/21/24 11:06 Urine Color Colorless (Yellow) Urine Clarity Clear (Clear) Urine pH 6.5 (5.0-9.0) Urine Specific [place] 1.006 (1.001-1.035) Urine Protein Negative (Negative) Urine Ketones Negative (Negative) Urine Blood Negative /uL (Negative) Urine Nitrite Negative (Negative) Urine Bilirubin Negative (Negative) Urine Urobilinogen Normal mg/dL (Negative) Urine Leukocyte Esterase Negative /uL (Negative) Urine RBC <1 /hpf (0 - 3) Urine WBC None seen /hpf (0 - 3) Urine Squamous Epithelial Cells None seen /hpf (<5) Urine Bacteria None seen /hpf (None Seen) Urine Glucose Normal mg/dL (Normal) Labs and/or images reviewed: Labs reviewed by me, Image(s) reviewed by me Assessment/Plan Assessment/Plan Severe low back pain Acute osteomyelitis by T11-12 by MRI: Vancomycin Rocephin consult for spine surgeon Dr. Garibay pending Consult by ID Dr. Suresh Hensley appreciated ordered blood cultures chest x-ray CT abdomen pelvis without contrast liver function test hepatitis panel; patient needs six weeks IV antibiotics History of cholecystectomy 11/16/2023 after which patient developed back pain Time spent 40 minutes Plan discussed with: Patient My Orders Orders - JOHNNIE YARBROUGH MD Procedure Category Date Status Time Vancomycin Per PHA 01/22/24 In Process Pharmacy 13:45 * [facility]ious [facility]- [facility] 01/22/24 Transmitted [facility] 13:39 Vancomycin 1gm/200ml PHA 01/23/24 In Process [facility] 00:00 Vancomycin,[facility] 01/23/24 Logged 23:00 Vancomycin Per ANABEL 01/22/24 In Process Pharmacy [facility] 17:19 Date of Service: Jan 23, 2024 Billing Provider: JOHNNIE YARBROUGH MD Common Visit Codes: [id number] INP/OBS CARE(HIGH) JOHNNIE YARBROUGH MD Jan 23, 2024 11:12
[2024-01-23 13:00] VITALS: BP 125/79; PULSE 89; RESP 20; TEMP 98.7; O2SAT 96
--- NOTE | 2024-01-23 13:49 | DVH ---
Exam: CT CT AB PEL WO CON-NO ORAL OR IV History: Osteomyelitis T12, sepsis, recent cholecystectomy, Comparison Study: CT CT AB PEL WO CON-NO ORAL OR IV on DOS: 11/15/23, CT CT AB PEL WO CON-NO ORAL OR I V on DOS: 10/22/23 Technique: Multidetector spiral CT of the abdomen was performed from lung bases to pubic symphysis. Imaging was performed without IV contrast. Axial, coronal and sagittal multiplanar reformats were ob tained from the axial data set by the technologist. Radiation Dose : 1. Abdomen/Pelvis: CTDIvol 9.7 mGy, DLP 533.13 mGy*cm. Findings: Evaluation of solid organs is limited due to lack of intravenous contrast use. Lung Bases: No acute or significant lung base finding. Normal heart size. No pleural or pericardial effusion. Liver: The liver is normal in size. No focal lesions. Gallbladder and Biliary Tree: Gallbladder is surgically absent. Spleen: Unremarkable Pancreas: The pancreas is grossly normal in appearance. Adrenal Glands: Unremarkable Kidneys: Kidneys are grossly normal without calculi or hydronephrosis. Bladder: Grossly unremarkable for degree of distention. Bowel: The stomach is grossly normal in appearance. Concentric wall thickening of the sigmoid colon a nd rectum, suggestive of mild proctocolitis Normal appendix is visualized in the right lower quadran t without findings of appendicitis. Ascites: Absent Lymphadenopathy: No mesenteric, retroperitoneal or periportal lymphadenopathy. Abdominal Wall and Mesentery: Unremarkable. Vasculature: The visualized abdominal aorta is normal in size and caliber. Evaluation of abdominal a nd pelvic vessels is limited due to lack of intravenous contrast. Pelvic Organs: Unremarkable Musculoskeletal: No aggressive focal bony lesions, acute fractures or dislocation. Redemonstration of sclerotic changes and irregularity in the superior endplate of T12 suggestive of osteomyelitis. IMPRESSION: 1. Concentric wall thickening of the sigmoid colon and rectum, suggestive of mild proctocolitis. No drainable fluid collection. No free air. 2. Redemonstration of T12 osteomyelitis. Radiation optimization: All CT scans at this facility use at least one of these dose optimization silvestre hniques: automated exposure control mA and/or kV adjustment per patient size (includes targeted exam s where dose is matched to clinical indication) or iterative reconstruction.
--- NOTE | 2024-01-23 13:50 | DVH ---
XY CHEST TWO VIEWS ROUTINE CLINICAL HISTORY: evaluate for pneumonia COMPARISON: 11/16/2023 TECHNIQUE: Frontal and lateral view of the chest was obtained FINDINGS: Lines and Tubes: None Lungs: No focal consolidation. Pleura: No effusion. No pneumothorax. Cardiomediastinal contours: Unremarkable Bones: No acute osseous abnormality. IMPRESSION: No acute cardiopulmonary disease.
[2024-01-23] MEDS: cefTRIAXone 2GM/50ML D5W 50 ML IV SCH (15:00)
[2024-01-23 17:00] VITALS: BP_SYST 120; BP_SYST 122; BP_DIAS 63; BP_DIAS 81; PULSE 101; PULSE 95; RESP 20; TEMP 98.7; TEMP 98.9; O2SAT 92; O2SAT 98
[2024-01-23 21:00] VITALS: BP 119/78; PULSE 98; RESP 17; TEMP 98.5; O2SAT 96
--- NOTE | 2024-01-23 22:42 | DVHPN2 ---
Consult Progress Note Date Seen: Jan 23, 2024 Subjective Patient reports: Feels better (states back pain has improved since hes been on antibiotics ) Objective vital signs Vital Sign Date Time Temp Pulse Resp B/P (MAP) Pulse Ox O2 Delivery O2 Flow Rate FiO2 01/23/24 21:00 98.5 98 17 119/78 (92) 96 98.5 01/23/24 08:00 Room Air* 0 21 Total Intake and Output 01/22/24 01/22/24 01/23/24 15:00 23:00 07:00 Intake Total 125 ml 300 ml 600 ml Balance 125 ml 300 ml 600 ml medications Current Medications Medications Dose Ordered Sig/Eliza Route Start Time Stop Time Status Last Admin Dose Admin Acetaminophen/ Hydrocodone Bitart 1 tab Q4HP PRN PO 01/21/24 17:30 01/22/24 18:56 1 TAB Baclofen 20 mg Q12HP PO 01/21/24 22:00 01/22/24 22:26 20 MG Ketorolac Tromethamine 30 mg Q6HPRN PRN IV 01/21/24 17:30 01/26/24 17:29 Vancomycin HCl 0 ml @ 0 mls/hr UD IV 01/22/24 13:45 Vancomycin HCl 200 ml @ 200 mls/hr Q12H IV 01/23/24 00:00 01/23/24 13:21 200 MLS/HR Ceftriaxone Sodium/Dextrose 50 ml @ 50 mls/hr Q12HR@09,21 IV 01/23/24 09:00 01/23/24 20:52 50 MLS/HR Physical Exam: General: NAD Neck: Supple. No masses. HEENT: PERRL. Normal lids and conjunctiva. Moist mucous membranes. Oropharynx without lesions, exudates, or excessive erythema. Normal appearance of the external aspects of the nose and ears. Heart: Regular rhythm, normal rate. No murmur. No lower extremity edema. Lungs: Normal respiratory effort. Clear to auscultation bilaterally. No wheezes. No crackles. Abdomen: Soft. Non-tender. Non-distended. No masses or abdominal hernia. Msk: No tenderness of the back. No swelling, redness, or edema. No open wounds. Normal strength and tone in all 4 limbs. Skin: Warm and dry, no rashes. Neuro: Alert and oriented. No facial droop or slurred speech. Extra- ocular movements intact. Sensation intact to soft touch in all 4 limbs. Psych: Appropriate mood. Full affect. Oriented to person, place, time, and situation. Examination: GENERAL:Abnormal laboratory and microbiology Laboratory Tests 01/23/24 06:53 01/22/24 04:24 Test 01/22/24 04:24 Range/Units Serum Glucose 102 74-106 mg/dL Problem List/Assessment/Plan Problems(with codes): (1) Fever, unspecified (2) Elevated liver enzymes (3) Acute abdominal pain (4) Osteomyelitis of lumbar spine (5) Protruded lumbar disc (6) DDD (degenerative disc disease), lumbosacral (7) Calculus of gallbladder without cholecystitis without obstruction (8) Ileus (9) Hyponatremia (10) Abdominal distention (11) Cholelithiasis Problem List/Assessment/Plan ID Problem List: - Osteoarthritis - Gallstones (status post cholecystectomy) - Diabetes mellitus - 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 male with a past medical history of osteoarthritis, gallstones (status post cholecystectomy on November 15), and diabetes mellitus, who presents with mid to lower back pain. The pain has been present since his cholecystectomy and is worse after sleeping. An MRI done a week ago showed L1 to L5-S1 degeneration and possible T11-T12 osteomyelitis with phlegmon of the anterior paraspinal soft tissues at this level spanning a distance of 3.2 cm. He has no lower extremity weakness, no bowel or bladder incontinence, and no paresthesias. Physical exam is notable for no tenderness on his back, no swelling, redness, edema, or open wounds. Laboratory studies show elevated WBC counts up to 11.53, current WBC of 10.9, hemoglobin 14.4, platelets 532, and CRP elevated at 2.51. MRI of the thoracic spine shows discitis and osteomyelitis of T11-T12 with phlegmon. MRI of the lumbar spine shows mild central disc protrusion at L5-S1 with mild central canal stenosis with nerve impingement. 01/22: Chest xray shows no cardiopulmonary disease and abdomen pelvic ct shows concentric wall thickening around sigmoid colon and rectum , suggest of mild proctorcollitis , no free air or fluid collection. gallbladder area shows signs of abscess. Patient continues to have osteomyelitis of the spine without clear ideology of source Plan: - Follow up on blood cultures - Continue vancomycin and ceftriaxone for now. - Recommend neurosurgical consultation for evaluation of debridement if indicated; if incision and drainage is done, please collect bacterial and anaerobic cultures. - Anticipate patient needing six weeks of IV antibiotics at minimum, whether surgery is performed or not. - Recommend PICC line placement once blood cultures are confirmed to be negative. - most likely ideology of thoraco spinal osteomyelitis is from recent surgery Plan discussed with: Other DAILY RUSSELL MD Jan 23, 2024 22:42
[2024-01-24 01:03] VITALS: BP_SYST 104; BP_SYST 120; BP_DIAS 47; BP_DIAS 70; PULSE 85; PULSE 94; RESP 17; RESP 18; TEMP 98.6; TEMP 98.7; O2SAT 94; O2SAT 97
[2024-01-24 05:02] VITALS: BP 104/71; PULSE 87; RESP 18; TEMP 98.1; O2SAT 97
[2024-01-24 09:00] VITALS: BP 112/71; PULSE 99; RESP 20; TEMP 98; O2SAT 95
--- NOTE | 2024-01-24 09:44 | DVHPN2 ---
Reviewed: Care Plan, H&P, Labs, Medications, Previous Orders, Radiology Changes from previous H/P or p: No Changes Eyes: No Pain, No Vision change, No Conjunctivae inflammation, No Eyelid inflammation, No Other, No Redness ENT: No Ear pain, No Ear discharge, No Nose pain, No Nose discharge, No Nose congestion, No Mouth pain, No Mouth swelling, No Throat pain, No Throat swelling, No Other Cardiovascular: No Chest Pain, No Palpitations, No Orthopnea, No Paroxysmal Noc. Dyspnea, No Edema, No Lt Headedness, No Other Respiratory: No Cough, No Dry, No Shortness of breath, No SOB with excertion, No Wheezing, No Hemoptysis, No Pleuritic Pain, No Sputum, No Other Gastrointestinal: No Nausea, No Vomiting, No Abdominal Pain, No Diarrhea, No Constipation, No Melena, No Hematochezia, No Other Genitourinary: No Dysuria, No Frequency, No Incontinence, No Hematuria, No Retention, No Other Musculoskeletal: No other, No neck pain, No shoulder pain, No arm pain; back pain; No hand pain, No leg pain, No foot pain Skin: No Rash, No Lesions, No Jaundice, No Bruising, No Other Objective Vitals Vital Signs Date Time Temp Pulse Resp B/P (MAP) Pulse Ox O2 Delivery O2 Flow Rate FiO2 01/24/24 09:00 98.0 99 20 112/71 (85) 95 98.0 01/24/24 08:00 Room Air* 0 21 Intake/Output Intake and Output 01/24/24 07:00 Intake Total 1640 ml Output Total 700 ml Balance 940 ml Intake Oral 1140 ml IV Total 500 ml Output Urine Total 700 ml # Voids 2 # Bowel Movements 1 Medications Current Medications Medications Dose Ordered Sig/Eliza Route Start Time Stop Time Status Last Admin Dose Admin Acetaminophen/ Hydrocodone Bitart 1 tab Q4HP PRN PO 01/21/24 17:30 01/22/24 18:56 1 TAB Baclofen 20 mg Q12HP PO 01/21/24 22:00 01/22/24 22:26 20 MG Ketorolac Tromethamine 30 mg Q6HPRN PRN IV 01/21/24 17:30 01/26/24 17:29 Vancomycin HCl 0 ml @ 0 mls/hr UD IV 01/22/24 13:45 Ceftriaxone Sodium/Dextrose 50 ml @ 50 mls/hr Q12HR@09,21 IV 01/23/24 09:00 01/23/24 20:52 50 MLS/HR Vancomycin HCl 250 ml @ 200 mls/hr Q12H IV 01/24/24 12:00 Laboratory Results Laboratory Tests 01/22/24 04:24 01/23/24 06:53 Urinalysis Test 01/21/24 11:06 Urine Color Colorless (Yellow) Urine Clarity Clear (Clear) Urine pH 6.5 (5.0-9.0) Urine Specific [place] 1.006 (1.001-1.035) Urine Protein Negative (Negative) Urine Ketones Negative (Negative) Urine Blood Negative /uL (Negative) Urine Nitrite Negative (Negative) Urine Bilirubin Negative (Negative) Urine Urobilinogen Normal mg/dL (Negative) Urine Leukocyte Esterase Negative /uL (Negative) Urine RBC <1 /hpf (0 - 3) Urine WBC None seen /hpf (0 - 3) Urine Squamous Epithelial Cells None seen /hpf (<5) Urine Bacteria None seen /hpf (None Seen) Urine Glucose Normal mg/dL (Normal) Microbiology Microbiology Date/Time Source Procedure Growth Status 01/23/24 08:51 Blood Blood Culture - Preliminary NO GROWTH AFTER 24 HOURS OF INCUBATION. Resulted Labs and/or images reviewed: Labs reviewed by me, Image(s) reviewed by me Assessment/Plan Assessment/Plan Severe low back pain Acute osteomyelitis by T11-12 by MRI: Vancomycin Rocephin consult for spine surgeon Dr. Garibay pending Consult by ID Dr. Suresh Hensley appreciated ordered blood cultures negative chest x-ray CT abdomen pelvis without contrast liver function test hepatitis panel; patient needs six weeks IV antibiotics History of cholecystectomy 11/16/2023 after which patient developed back pain Chest x-ray negative CT abdomen pelvis shows proctocolitis: Patient on Zosyn Time spent 40 minutes Plan discussed with: Patient My Orders Orders - JOHNNIE YARBROUGH MD Procedure Category Date Status Time Ct Ab Pel Wo Con-No CT 01/23/24 Resulted Oral Or Iv 11:12 * Orthopedic Consult CONS 01/23/24 Transmitted 12:15 Vancomycin PHA 01/24/24 In Process 1.25gm/250ml 12:00 Complete Blood Count LAB 01/25/24 Verified 04:00 Creatinine LAB 01/25/24 Verified 04:00 Vancomycin,Trough LAB 01/25/24 Verified 23:00 Vancomycin Per ANABEL 01/24/24 In Process [facility] 08:41 Date of Service: Jan 24, 2024 Billing Provider: JOHNNIE YARBROUGH MD Common Visit Codes: [id number] INP/OBS CARE(HIGH) JOHNNIE YARBROUGH MD Jan 24, 2024 09:44
[2024-01-24] MEDS: VANCOMYCIN 1.25GM/250ML 250 ML IV SCH (12:40)
[2024-01-24 13:00] VITALS: BP 103/60; PULSE 99; RESP 20; TEMP 98.5; O2SAT 97
[2024-01-24 17:00] VITALS: BP 113/69; PULSE 82; RESP 20; TEMP 98; O2SAT 97
[2024-01-24 21:00] VITALS: BP 103/62; PULSE 88; RESP 18; TEMP 98.1; O2SAT 97
[2024-01-25] MEDS: VANCOMYCIN 1.25GM/250ML 250 ML IV ONE (00:19)
[2024-01-25 05:00] VITALS: BP 116/67; PULSE 80; RESP 18; TEMP 98.2; O2SAT 98
[2024-01-25 05:21] LABS: Basophils # (auto) 0.1 10 ^3/uL (0-0.2); Basophils % (auto) 1.4 % (0.0-2.0); Eosinophils # (auto) 0.6 10 ^3/uL (0-0.8); Eosinophils % (auto) 6.6 % (0.0-7.0); Hematocrit 35.4 % (41.0-53.0); Hemoglobin 11.8 g/dL (13.5-17.5); Lymphocytes # (auto) 2.7 10 ^3/uL (0.4-5.4); Lymphocytes % (auto) 31.4 % (10.0-50.0); Mean Corpuscular Hemoglobin 27.7 pg (28.0-32.0); Mean Corpuscular Hgb Conc. 33.3 g/dL (32.0-36.0); Mean Corpuscular Volume 83.2 fL (80.0-100.0); Monocytes # (auto) 0.9 10 ^3/uL (0-1.3); Monocytes % (auto) 10.3 % (0.0-12.0); Neutrophils # (auto) 4.4 10 ^3/uL (1.6-8.6); Neutrophils % (auto) 50.3 % (37.0-80.0); Nucleated Red Blood Cells % 0.1 %; Platelet Count (auto) 409 10^3/uL (140-450); Red Blood Cells 4.26 10^6/uL (4.5-5.90); Red Cell Distribution Width 13.2 % (11.8-14.3); White Blood Cell 8.7 10^3/uL (4.4-10.8)
[2024-01-25 08:00] VITALS: BP 101/61; PULSE 73; RESP 18; TEMP 98; O2SAT 97
[2024-01-25 08:30] VITALS: PULSE 74; O2SAT 98
[2024-01-25 12:00] VITALS: BP 113/76; PULSE 74; RESP 18; TEMP 98.3; O2SAT 98
--- NOTE | 2024-01-25 13:31 | DVHPN2 ---
Reviewed: Care Plan, H&P, Labs, Medications, Previous Orders, Radiology Changes from previous H/P or p: No Changes Eyes: No Pain, No Vision change, No Conjunctivae inflammation, No Eyelid inflammation, No Other, No Redness ENT: No Ear pain, No Ear discharge, No Nose pain, No Nose discharge, No Nose congestion, No Mouth pain, No Mouth swelling, No Throat pain, No Throat swelling, No Other Cardiovascular: No Chest Pain, No Palpitations, No Orthopnea, No Paroxysmal Noc. Dyspnea, No Edema, No Lt Headedness, No Other Respiratory: No Cough, No Dry, No Shortness of breath, No SOB with excertion, No Wheezing, No Hemoptysis, No Pleuritic Pain, No Sputum, No Other Gastrointestinal: No Nausea, No Vomiting, No Abdominal Pain, No Diarrhea, No Constipation, No Melena, No Hematochezia, No Other Genitourinary: No Dysuria, No Frequency, No Incontinence, No Hematuria, No Retention, No Other Musculoskeletal: No other, No neck pain, No shoulder pain, No arm pain; back pain; No hand pain, No leg pain, No foot pain Skin: No Rash, No Lesions, No Jaundice, No Bruising, No Other Objective Vitals Vital Signs Date Time Temp Pulse Resp B/P (MAP) Pulse Ox O2 Delivery O2 Flow Rate FiO2 01/25/24 08:30 74 98 Room Air* 0 21 01/25/24 08:00 98.0 18 101/61 (74) 98.0 Intake/Output Intake and Output 01/25/24 07:00 Intake Total 1400 ml Output Total 502 ml Balance 898 ml Intake Oral 800 ml IV Total 600 ml Output Urine Total 500 ml Stool Total 2 ml Medications Current Medications Medications Dose Ordered Sig/Eliza Route Start Time Stop Time Status Last Admin Dose Admin Acetaminophen/ Hydrocodone Bitart 1 tab Q4HP PRN PO 01/21/24 17:30 01/22/24 18:56 1 TAB Baclofen 20 mg Q12HP PO 01/21/24 22:00 01/25/24 09:53 20 MG Ketorolac Tromethamine 30 mg Q6HPRN PRN IV 01/21/24 17:30 01/26/24 17:29 Vancomycin HCl 0 ml @ 0 mls/hr UD IV 01/22/24 13:45 Ceftriaxone Sodium/Dextrose 50 ml @ 50 mls/hr Q12HR@09,21 IV 01/23/24 09:00 01/25/24 08:46 50 MLS/HR Vancomycin HCl 250 ml @ 200 mls/hr Q12H IV 01/24/24 12:00 01/25/24 12:20 200 MLS/HR Laboratory Results Laboratory Tests 01/22/24 04:24 01/25/24 04:53 Urinalysis Test 01/21/24 11:06 Urine Color Colorless (Yellow) Urine Clarity Clear (Clear) Urine pH 6.5 (5.0-9.0) Urine Specific [place] 1.006 (1.001-1.035) Urine Protein Negative (Negative) Urine Ketones Negative (Negative) Urine Blood Negative /uL (Negative) Urine Nitrite Negative (Negative) Urine Bilirubin Negative (Negative) Urine Urobilinogen Normal mg/dL (Negative) Urine Leukocyte Esterase Negative /uL (Negative) Urine RBC <1 /hpf (0 - 3) Urine WBC None seen /hpf (0 - 3) Urine Squamous Epithelial Cells None seen /hpf (<5) Urine Bacteria None seen /hpf (None Seen) Urine Glucose Normal mg/dL (Normal) Microbiology Microbiology Date/Time Source Procedure Growth Status 01/23/24 08:51 Blood Blood Culture - Preliminary NO GROWTH AFTER 48 HOURS OF INCUBATION. Resulted Labs and/or images reviewed: Labs reviewed by me, Image(s) reviewed by me Assessment/Plan Assessment/Plan Severe low back pain Acute osteomyelitis by T11-12 by MRI: Vancomycin Rocephin consult for spine surgeon Dr. Garibay pending Consult by ID Dr. Suresh Hensley appreciated ordered blood cultures negative chest x-ray CT abdomen pelvis without contrast liver function test hepatitis panel; patient needs six weeks IV antibiotics History of cholecystectomy 11/16/2023 after which patient developed back pain Chest x-ray negative CT abdomen pelvis shows proctocolitis: Patient on Zosyn Time spent 40 minutes Plan discussed with: Patient Date of Service: Jan 25, 2024 Billing Provider: JOHNNIE YARBROUGH MD Common Visit Codes: [id number] INP/OBS CARE(HIGH) JOHNNIE YARBROUGH MD Jan 25, 2024 13:31
[2024-01-25 16:00] VITALS: BP 107/61; PULSE 82; RESP 18; TEMP 98.2; O2SAT 96
[2024-01-25 22:00] VITALS: BP 105/72; PULSE 71; RESP 16; TEMP 98.1; O2SAT 97
[2024-01-26] VITALS (8 sets, daily range): BP systolic 98–111; BP diastolic 62–74; PULSE 60–84; RESP 16–18; TEMP 97.9–98.3; O2SAT 8–98
[2024-01-26 06:58] LABS: Basophils # (auto) 0.1 10 ^3/uL (0-0.2); Basophils % (auto) 1.3 % (0.0-2.0); Eosinophils # (auto) 0.4 10 ^3/uL (0-0.8); Eosinophils % (auto) 5.8 % (0.0-7.0); Hematocrit 34.4 % (41.0-53.0); Hemoglobin 11.6 g/dL (13.5-17.5); Lymphocytes # (auto) 2.4 10 ^3/uL (0.4-5.4); Lymphocytes % (auto) 30.7 % (10.0-50.0); Mean Corpuscular Hemoglobin 28.4 pg (28.0-32.0); Mean Corpuscular Hgb Conc. 33.9 g/dL (32.0-36.0); Mean Corpuscular Volume 83.8 fL (80.0-100.0); Monocytes # (auto) 0.7 10 ^3/uL (0-1.3); Monocytes % (auto) 8.8 % (0.0-12.0); Neutrophils # (auto) 4.1 10 ^3/uL (1.6-8.6); Neutrophils % (auto) 53.4 % (37.0-80.0); Platelet Count (auto) 377 10^3/uL (140-450); Red Cell Distribution Width 13.3 % (11.8-14.3); White Blood Cell 7.6 10^3/uL (4.4-10.8)
[2024-01-26 16:59] LABS: INR 1.08 (0.9-1.15); Prothrombin Time 11.4 sec (9.3-11.8)
--- NOTE | 2024-01-26 20:42 | DVHPN2 ---
Consult Progress Note Date Seen: Jan 24, 2024 Subjective Patient reports: Feels better (no fever or chills) Objective vital signs Vital Sign Date Time Temp Pulse Resp B/P (MAP) Pulse Ox O2 Delivery O2 Flow Rate FiO2 01/26/24 17:00 98.3 60 16 111/68 (82) 98 98.3 01/26/24 07:30 Room Air* 0 21 Total Intake and Output 01/25/24 01/25/24 01/26/24 15:00 23:00 07:00 Intake Total 300 ml 700 ml 625 ml Balance 300 ml 700 ml 625 ml medications Current Medications Medications Dose Ordered Sig/Eliza Route Start Time Stop Time Status Last Admin Dose Admin Acetaminophen/ Hydrocodone Bitart 1 tab Q4HP PRN PO 01/21/24 17:30 01/22/24 18:56 1 TAB Baclofen 20 mg Q12HP PO 01/21/24 22:00 01/26/24 09:16 20 MG Vancomycin HCl 0 ml @ 0 mls/hr UD IV 01/22/24 13:45 Ceftriaxone Sodium/Dextrose 50 ml @ 50 mls/hr Q12HR@,21 IV 01/23/24 09:00 01/26/24 09:15 50 MLS/HR Vancomycin HCl 250 ml @ 200 mls/hr Q12H IV 01/24/24 12:00 01/26/24 13:06 200 MLS/HR Physical Exam: General: NAD Neck: Supple. No masses. HEENT: Gag reflex present. PERRL. Normal lids and conjunctiva. Moist mucous membranes. Oropharynx without lesions, exudates, or excessive erythema. Normal appearance of the external aspects of the nose and ears. Heart: Regular rhythm, normal rate. No murmur. Lungs: Intubated. Breath sounds present bilaterally. Abdomen: Soft. Non-tender. Non-distended. Normal bowel sounds. No masses or abdominal hernia. Musculoskeletal: No notable movement. Skin: Warm and dry. No rashes. 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 male with a past medical history of osteoarthritis, gallstones (status post cholecystectomy on November 15), and diabetes mellitus, who presents with mid to lower back pain. The pain has been present since his cholecystectomy and is worse after sleeping. An MRI done a week ago showed L1 to L5-S1 degeneration and possible T11-T12 osteomyelitis with phlegmon of the anterior paraspinal soft tissues at this level spanning a distance of 3.2 cm. He has no lower extremity weakness, no bowel or bladder incontinence, and no paresthesias. Physical exam is notable for no tenderness on his back, no swelling, redness, edema, or open wounds. Laboratory studies show elevated WBC counts up to 11.53, current WBC of 10.9, hemoglobin 14.4, platelets 532, and CRP elevated at 2.51. MRI of the thoracic spine shows discitis and osteomyelitis of T11-T12 with phlegmon. MRI of the lumbar spine shows mild central disc protrusion at L5-S1 with mild central canal stenosis with nerve impingement. 01/22: Chest xray shows no cardiopulmonary disease and abdomen pelvic ct shows concentric wall thickening around sigmoid colon and rectum , suggest of mild proctorcollitis , no free air or fluid collection. gallbladder area shows signs of abscess. Patient continues to have osteomyelitis of the spine without clear ideology of source Plan: - Follow up on blood cultures - Continue vancomycin and ceftriaxone for now. - Recommend neurosurgical consultation for evaluation of debridement if indicated; if incision and drainage is done, please collect bacterial and anaerobic cultures. - Anticipate patient needing six weeks of IV antibiotics at minimum, whether surgery is performed or not. - Recommend PICC line placement once blood cultures are confirmed to be negative. - most likely ideology of thoraco spinal osteomyelitis is from recent surgery Plan discussed with: Patient DAILY RUSSELL MD Jan 26, 2024 20:42
--- NOTE | 2024-01-26 20:43 | DVHPN2 ---
Consult Progress Note Date Seen: Jan 25, 2024 Subjective Patient reports: Feels better (no diarrhea or rash) Objective vital signs Vital Sign Date Time Temp Pulse Resp B/P (MAP) Pulse Ox O2 Delivery O2 Flow Rate FiO2 01/26/24 17:00 98.3 60 16 111/68 (82) 98 98.3 01/26/24 07:30 Room Air* 0 21 Total Intake and Output 01/25/24 01/25/24 01/26/24 15:00 23:00 07:00 Intake Total 300 ml 700 ml 625 ml Balance 300 ml 700 ml 625 ml medications Current Medications Medications Dose Ordered Sig/Eliza Route Start Time Stop Time Status Last Admin Dose Admin Acetaminophen/ Hydrocodone Bitart 1 tab Q4HP PRN PO 01/21/24 17:30 01/22/24 18:56 1 TAB Baclofen 20 mg Q12HP PO 01/21/24 22:00 01/26/24 09:16 20 MG Vancomycin HCl 0 ml @ 0 mls/hr UD IV 01/22/24 13:45 Ceftriaxone Sodium/Dextrose 50 ml @ 50 mls/hr Q12HR@, IV 01/23/24 09:00 01/26/24 09:15 50 MLS/HR Vancomycin HCl 250 ml @ 200 mls/hr Q12H IV 01/24/24 12:00 01/26/24 13:06 200 MLS/HR Physical Exam: General: NAD Neck: Supple. No masses. HEENT: Gag reflex present. PERRL. Normal lids and conjunctiva. Moist mucous membranes. Oropharynx without lesions, exudates, or excessive erythema. Normal appearance of the external aspects of the nose and ears. Heart: Regular rhythm, normal rate. No murmur. Lungs: Intubated. Breath sounds present bilaterally. Thick dark-colored sputum noted. Abdomen: Soft. Non-tender. Non-distended. Normal bowel sounds. No masses or abdominal hernia. Musculoskeletal: No notable movement. Skin: Warm and dry. No rashes. 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 male with a past medical history of osteoarthritis, gallstones (status post cholecystectomy on November 15), and diabetes mellitus, who presents with mid to lower back pain. The pain has been present since his cholecystectomy and is worse after sleeping. An MRI done a week ago showed L1 to L5-S1 degeneration and possible T11-T12 osteomyelitis with phlegmon of the anterior paraspinal soft tissues at this level spanning a distance of 3.2 cm. He has no lower extremity weakness, no bowel or bladder incontinence, and no paresthesias. Physical exam is notable for no tenderness on his back, no swelling, redness, edema, or open wounds. Laboratory studies show elevated WBC counts up to 11.53, current WBC of 10.9, hemoglobin 14.4, platelets 532, and CRP elevated at 2.51. MRI of the thoracic spine shows discitis and osteomyelitis of T11-T12 with phlegmon. MRI of the lumbar spine shows mild central disc protrusion at L5-S1 with mild central canal stenosis with nerve impingement. 01/22: Chest xray shows no cardiopulmonary disease and abdomen pelvic ct shows concentric wall thickening around sigmoid colon and rectum , suggest of mild proctorcollitis , no free air or fluid collection. gallbladder area shows signs of abscess. Patient continues to have osteomyelitis of the spine without clear ideology of source Plan: - Follow up on blood cultures - Continue vancomycin and ceftriaxone for now. - Recommend neurosurgical consultation for evaluation of debridement if indicated; if incision and drainage is done, please collect bacterial and anaerobic cultures. - Anticipate patient needing six weeks of IV antibiotics at minimum, whether surgery is performed or not. - Recommend PICC line placement once blood cultures are confirmed to be negative. - most likely ideology of thoraco spinal osteomyelitis is from recent surgery Plan discussed with: Patient DAILY RUSSELL MD Jan 26, 2024 20:43
--- NOTE | 2024-01-26 21:13 | DVHPN2 ---
Consult Progress Note Date Seen: Jan 26, 2024 Subjective Patient reports: Feels better (no pain in the spine , is able to ambulate and tolerating diet ) Objective vital signs Vital Sign Date Time Temp Pulse Resp B/P (MAP) Pulse Ox O2 Delivery O2 Flow Rate FiO2 01/26/24 17:00 98.3 60 16 111/68 (82) 98 98.3 01/26/24 07:30 Room Air* 0 21 Total Intake and Output 01/25/24 01/25/24 01/26/24 15:00 23:00 07:00 Intake Total 300 ml 700 ml 625 ml Balance 300 ml 700 ml 625 ml medications Current Medications Medications Dose Ordered Sig/Eliza Route Start Time Stop Time Status Last Admin Dose Admin Acetaminophen/ Hydrocodone Bitart 1 tab Q4HP PRN PO 01/21/24 17:30 01/22/24 18:56 1 TAB Baclofen 20 mg Q12HP PO 01/21/24 22:00 01/26/24 20:47 20 MG Vancomycin HCl 0 ml @ 0 mls/hr UD IV 01/22/24 13:45 Ceftriaxone Sodium/Dextrose 50 ml @ 50 mls/hr Q12HR@09,21 IV 01/23/24 09:00 01/26/24 20:47 50 MLS/HR Vancomycin HCl 250 ml @ 200 mls/hr Q12H IV 01/24/24 12:00 01/26/24 13:06 200 MLS/HR Physical Exam: General: NAD Neck: Supple. No masses. HEENT: Gag reflex present. PERRL. Normal lids and conjunctiva. Moist mucous membranes. Oropharynx without lesions, exudates, or excessive erythema. Normal appearance of the external aspects of the nose and ears. Heart: Regular rhythm, normal rate. No murmur. Lungs: Intubated. Breath sounds present bilaterally. Thick dark-colored sputum noted. Abdomen: Soft. Non-tender. Non-distended. Normal bowel sounds. No masses or abdominal hernia. Musculoskeletal: No notable movement. Skin: Warm and dry. No rashes. Neuro: no spine tenderness laboratory and microbiology Laboratory Tests 01/26/24 05:45 01/22/24 04:24 Test 01/22/24 04:24 Range/Units Serum Glucose 102 74-106 mg/dL Problem List/Assessment/Plan Problems(with codes): (1) Calculus of gallbladder without cholecystitis without obstruction (2) Ileus (3) Hyponatremia (4) Abdominal distention (5) Cholelithiasis (6) Fever, unspecified (7) Elevated liver enzymes (8) Acute abdominal pain (9) Osteomyelitis of lumbar spine (10) Protruded lumbar disc (11) DDD (degenerative disc disease), lumbosacral Problem List/Assessment/Plan ID Problem List: - Osteoarthritis - Gallstones (status post cholecystectomy) - Diabetes mellitus - 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 male with a past medical history of osteoarthritis, gallstones (status post cholecystectomy on November 15), and diabetes mellitus, who presents with mid to lower back pain. The pain has been present since his cholecystectomy and is worse after sleeping. An MRI done a week ago showed L1 to L5-S1 degeneration and possible T11-T12 osteomyelitis with phlegmon of the anterior paraspinal soft tissues at this level spanning a distance of 3.2 cm. He has no lower extremity weakness, no bowel or bladder incontinence, and no paresthesias. Physical exam is notable for no tenderness on his back, no swelling, redness, edema, or open wounds. Laboratory studies show elevated WBC counts up to 11.53, current WBC of 10.9, hemoglobin 14.4, platelets 532, and CRP elevated at 2.51. MRI of the thoracic spine shows discitis and osteomyelitis of T11-T12 with phlegmon. MRI of the lumbar spine shows mild central disc protrusion at L5-S1 with mild central canal stenosis with nerve impingement. 01/22: Chest xray shows no cardiopulmonary disease and abdomen pelvic ct shows concentric wall thickening around sigmoid colon and rectum , suggest of mild proctorcollitis , no free air or fluid collection. gallbladder area shows signs of abscess. Patient continues to have osteomyelitis of the spine without clear ideology of source 01/25: Patient was seen by neurosurgery and recomends no surgery at this time Plan: - get piccline placement - IV vancomycin and ceftriaxone for 6 weeks - monitor patients clinical exam for improvement on and off antibiotics - follow up with infectious disease in 6 weeks for antibiotic response as well as status of inflammation - recommend physical therapy aver IV antibiotics - Collect baseline CRP and ESR level - repeat MRI 4 months after antibiotics are complete to ensure infection is gone - Follow up on blood cultures - most likely ideology of thoraco spinal osteomyelitis is from recent surgery Plan discussed with: DAILY Sullivan MD Jan 26, 2024 21:13
[2024-01-27] VITALS (8 sets, daily range): BP systolic 106–114; BP diastolic 62–72; PULSE 58–76; RESP 14–18; TEMP 97.8–98.4; O2SAT 95–98
[2024-01-27 07:24] LABS: Basophils # (auto) 0.1 10 ^3/uL (0-0.2); Basophils % (auto) 1.2 % (0.0-2.0); Eosinophils # (auto) 0.4 10 ^3/uL (0-0.8); Eosinophils % (auto) 4.8 % (0.0-7.0); Lymphocytes # (auto) 2.6 10 ^3/uL (0.4-5.4); Lymphocytes % (auto) 34.1 % (10.0-50.0); Mean Corpuscular Hemoglobin 27.7 pg (28.0-32.0); Mean Corpuscular Hgb Conc. 33.5 g/dL (32.0-36.0); Mean Corpuscular Volume 82.8 fL (80.0-100.0); Monocytes # (auto) 0.6 10 ^3/uL (0-1.3); Monocytes % (auto) 7.7 % (0.0-12.0); Neutrophils % (auto) 52.2 % (37.0-80.0); Nucleated Red Blood Cells % 0.1 %; Platelet Count (auto) 394 10^3/uL (140-450); Red Blood Cells 4.34 10^6/uL (4.5-5.90); Red Cell Distribution Width 13.1 % (11.8-14.3); White Blood Cell 7.6 10^3/uL (4.4-10.8)
[2024-01-27] MEDS: GASTROGRAFIN 30 ML SOL ONE (12:30)
[2024-01-27] MEDS: VANCOMYCIN 1GM/200ML PREMIX 200 ML IV SCH (12:37)
--- NOTE | 2024-01-27 13:50 | DVHPN2 ---
Reviewed: Care Plan, H&P, Labs, Medications, Previous Orders, Radiology Changes from previous H/P or p: No Changes Eyes: No Pain, No Vision change, No Conjunctivae inflammation, No Eyelid inflammation, No Other, No Redness ENT: No Ear pain, No Ear discharge, No Nose pain, No Nose discharge, No Nose congestion, No Mouth pain, No Mouth swelling, No Throat pain, No Throat swelling, No Other Cardiovascular: No Chest Pain, No Palpitations, No Orthopnea, No Paroxysmal Noc. Dyspnea, No Edema, No Lt Headedness, No Other Respiratory: No Cough, No Dry, No Shortness of breath, No SOB with excertion, No Wheezing, No Hemoptysis, No Pleuritic Pain, No Sputum, No Other Gastrointestinal: No Nausea, No Vomiting, No Abdominal Pain, No Diarrhea, No Constipation, No Melena, No Hematochezia, No Other Genitourinary: No Dysuria, No Frequency, No Incontinence, No Hematuria, No Retention, No Other Musculoskeletal: No other, No neck pain, No shoulder pain, No arm pain; back pain; No hand pain, No leg pain, No foot pain Skin: No Rash, No Lesions, No Jaundice, No Bruising, No Other Objective Vitals Vital Signs Date Time Temp Pulse Resp B/P (MAP) Pulse Ox O2 Delivery O2 Flow Rate FiO2 01/27/24 13:00 97.8 58 16 106/67 (80) 98 97.8 01/26/24 20:00 Room Air* 0 21 Intake/Output Intake and Output 01/27/24 07:00 Intake Total 2650 ml Balance 2650 ml Intake Oral 2300 ml IV Total 350 ml # Voids 5 # Bowel Movements 2 Medications Current Medications Medications Dose Ordered Sig/Eliza Route Start Time Stop Time Status Last Admin Dose Admin Acetaminophen/ Hydrocodone Bitart 1 tab Q4HP PRN PO 01/21/24 17:30 01/22/24 18:56 1 TAB Baclofen 20 mg Q12HP PO 01/21/24 22:00 01/27/24 09:30 20 MG Vancomycin HCl 0 ml @ 0 mls/hr UD IV 01/22/24 13:45 Ceftriaxone Sodium/Dextrose 50 ml @ 50 mls/hr Q12HR@09,21 IV 01/23/24 09:00 01/27/24 09:31 50 MLS/HR Vancomycin HCl 200 ml @ 200 mls/hr Q8H IV 01/27/24 12:00 01/27/24 12:37 200 MLS/HR Laboratory Results Laboratory Tests 01/22/24 04:24 01/27/24 06:40 Coagulation Test 01/26/24 16:10 Prothrombin Time 11.4 sec (9.3-11.8) Prothrombin Time INR 1.08 (0.9-1.15) Urinalysis Test 01/21/24 11:06 Urine Color Colorless (Yellow) Urine Clarity Clear (Clear) Urine pH 6.5 (5.0-9.0) Urine Specific [place] 1.006 (1.001-1.035) Urine Protein Negative (Negative) Urine Ketones Negative (Negative) Urine Blood Negative /uL (Negative) Urine Nitrite Negative (Negative) Urine Bilirubin Negative (Negative) Urine Urobilinogen Normal mg/dL (Negative) Urine Leukocyte Esterase Negative /uL (Negative) Urine RBC <1 /hpf (0 - 3) Urine WBC None seen /hpf (0 - 3) Urine Squamous Epithelial Cells None seen /hpf (<5) Urine Bacteria None seen /hpf (None Seen) Urine Glucose Normal mg/dL (Normal) Microbiology Microbiology Date/Time Source Procedure Growth Status 01/23/24 08:51 Blood Blood Culture - Preliminary NO GROWTH AFTER 72 HOURS OF INCUBATION. Resulted Labs and/or images reviewed: Labs reviewed by me, Image(s) reviewed by me Assessment/Plan Assessment/Plan Severe low back pain Acute osteomyelitis by T11-12 by MRI: Vancomycin Rocephin for six weeks consult for spine surgeon Dr. Garibay pending Consult by ID Dr. Suresh Hensley appreciated blood cultures negative chest x-ray CT abdomen pelvis without contrast liver function test hepatitis panel; patient needs six weeks IV antibiotics History of cholecystectomy 11/16/2023 after which patient developed back pain Chest x-ray negative CT abdomen pelvis shows proctocolitis: Patient on Rocephin Time spent 40 minutes Plan discussed with: Patient My Orders Orders - JOHNNIE YARBROUGH MD Procedure Category Date Status Time Vancomycin 1gm/200ml PHA 01/27/24 In Process [facility] 12:00 Vancomycin Per ANABEL 01/28/24 In Process [facility]acy [facility] 12:00 Vancomycin,Trough LAB 01/28/24 Verified 11:00 Creatinine LAB 01/28/24 Verified 04:00 Date of Service: Jan 27, 2024 Billing Provider: JOHNNIE YARBROUGH MD Common Visit Codes: [id number] INP/OBS CARE(HIGH) JOHNNIE YABRROUGH MD Jan 27, 2024 13:50
[2024-01-27] MEDS: SODIUM CHLOR 0.9% PF (SALINE LOCK) 10ML VIAL/SYR IV SCH (21:29)
--- NOTE | 2024-01-27 22:51 | DVHPN2 ---
Consult Progress Note Date Seen: Jan 27, 2024 Subjective Patient reports: Other (going to follow up with antibiotic regimen at home , will take 2x a day , tolerating antibiotics , new piccline in place ) Objective vital signs Vital Sign Date Time Temp Pulse Resp B/P (MAP) Pulse Ox O2 Delivery O2 Flow Rate FiO2 01/27/24 21:00 98.0 73 17 114/69 (84) 95 98.0 01/27/24 20:00 Room Air* 0 21 Total Intake and Output 01/26/24 01/26/24 01/27/24 15:00 23:00 07:00 Intake Total 50 ml 1800 ml 800 ml Balance 50 ml 1800 ml 800 ml medications Current Medications Medications Dose Ordered Sig/Eliza Route Start Time Stop Time Status Last Admin Dose Admin Acetaminophen/ Hydrocodone Bitart 1 tab Q4HP PRN PO 01/21/24 17:30 01/22/24 18:56 1 TAB Baclofen 20 mg Q12HP PO 01/21/24 22:00 01/27/24 21:29 20 MG Vancomycin HCl 0 ml @ 0 mls/hr UD IV 01/22/24 13:45 Ceftriaxone Sodium/Dextrose 50 ml @ 50 mls/hr Q12HR@09,21 IV 01/23/24 09:00 01/27/24 21:29 50 MLS/HR Vancomycin HCl 200 ml @ 200 mls/hr Q8H IV 01/27/24 12:00 01/27/24 20:01 200 MLS/HR Sodium Chloride 10 ml QSHIFT@10,22 IV 01/27/24 22:00 01/27/24 21:29 10 ML Physical Exam: General: NAD Neck: Supple. No masses. HEENT: Gag reflex present. PERRL. Normal lids and conjunctiva. Moist mucous membranes. Oropharynx without lesions, exudates, or excessive erythema. Normal appearance of the external aspects of the nose and ears. Heart: Regular rhythm, normal rate. No murmur. Lungs: Intubated. Breath sounds present bilaterally. Thick dark-colored sputum noted. Abdomen: Soft. Non-tender. Non-distended. Normal bowel sounds. No masses or abdominal hernia. Musculoskeletal: No notable movement. Skin: Warm and dry. No rashes. Neuro: no spine tenderness laboratory and microbiology Laboratory Tests 01/27/24 06:40 01/22/24 04:24 Test 01/22/24 04:24 Range/Units Serum Glucose 102 74-106 mg/dL Problem List/Assessment/Plan Problems(with codes): (1) Calculus of gallbladder without cholecystitis without obstruction (2) Ileus (3) Hyponatremia (4) Abdominal distention (5) Cholelithiasis (6) Fever, unspecified (7) Elevated liver enzymes (8) Acute abdominal pain (9) Protruded lumbar disc (10) Osteomyelitis of lumbar spine (11) DDD (degenerative disc disease), lumbosacral Problem List/Assessment/Plan ID Problem List: - Osteoarthritis - Gallstones (status post cholecystectomy) - Diabetes mellitus - 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 male with a past medical history of osteoarthritis, gallstones (status post cholecystectomy on November 15), and diabetes mellitus, who presents with mid to lower back pain. The pain has been present since his cholecystectomy and is worse after sleeping. An MRI done a week ago showed L1 to L5-S1 degeneration and possible T11-T12 osteomyelitis with phlegmon of the anterior paraspinal soft tissues at this level spanning a distance of 3.2 cm. He has no lower extremity weakness, no bowel or bladder incontinence, and no paresthesias. Physical exam is notable for no tenderness on his back, no swelling, redness, edema, or open wounds. Laboratory studies show elevated WBC counts up to 11.53, current WBC of 10.9, hemoglobin 14.4, platelets 532, and CRP elevated at 2.51. MRI of the thoracic spine shows discitis and osteomyelitis of T11-T12 with phlegmon. MRI of the lumbar spine shows mild central disc protrusion at L5-S1 with mild central canal stenosis with nerve impingement. 01/22: Chest xray shows no cardiopulmonary disease and abdomen pelvic ct shows concentric wall thickening around sigmoid colon and rectum , suggest of mild proctorcollitis , no free air or fluid collection. gallbladder area shows signs of abscess. Patient continues to have osteomyelitis of the spine without clear ideology of source 01/25: Patient was seen by neurosurgery and recomends no surgery at this time Plan: - get piccline placement - IV vancomycin and ceftriaxone for 6 weeks - monitor patients clinical exam for improvement on and off antibiotics - follow up with infectious disease in 6 weeks for antibiotic response as well as status of inflammation - recommend physical therapy aver IV antibiotics - Collect baseline CRP and ESR level - repeat MRI 4 months after antibiotics are complete to ensure infection is gone - Follow up on blood cultures - most likely ideology of thoraco spinal osteomyelitis is from recent surgery Plan discussed with: Other Dietary Evaluation Review Comments: Continue current plan of care Expected Outcomes/Goals: F/U in 3-5 days DAILY RUSSELL MD Jan 27, 2024 22:51
[2024-01-28 01:00] VITALS: BP 111/79; PULSE 81; RESP 17; TEMP 98.4; O2SAT 97
[2024-01-28 05:00] VITALS: BP 100/64; PULSE 72; RESP 17; TEMP 98.1; O2SAT 96
[2024-01-28 07:30] VITALS: PULSE 73; RESP 20; O2SAT 99
[2024-01-28 08:30] VITALS: BP 110/72; PULSE 77; RESP 19; TEMP 98; O2SAT 100
--- NOTE | 2024-01-28 08:31 | DVHINCON2 ---
Consultation - Spinal Surgery Date Seen: Jan 26, 2024 History of Present Illness History of Present Illness This pleasant man is suffering from back pain without radiation of pain down the legs and no bowel or bladder incontinence he recently had gall bladder surgery and that is when the back pain issues began. he was admitted and imaging studies revealed discitis/osteomyelitis WITHOUT an epidural abscess Allergies and medications Allergies: Coded Allergies: NO KNOWN ALLERGIES (Unverified , 10/22/23) Home Meds Active Scripts Doxycycline (Monohydrate) (Doxycycline) 100 Mg Cap, 100 MG PO BID for 7 Days, #14 CAP Prov:ROSENDO ASENCIO RESIDENT 11/20/23 Metronidazole (Metronidazole) 500 Mg Tab, 500 MG PO TID for 5 Days, #15 TAB Prov:ROSENDO ASENCIO 11/17/23 Ciprofloxacin Hydrochloride (Ciprofloxacin HCl) 250 Mg Tab, 250 MG PO BID for 5 Days, #10 TAB Prov:ROSENDO ASENCIO 11/17/23 Acetaminophen (Acetaminophen) 325 Mg Tab, 650 MG PO Q6HP PRN for 10 Days, #80 TAB Prov:ROSENDO ASENCIO 11/17/23 Cholecalciferol (Vitamin D3 Super Strength) 2,000 Unit Cap, 2000 UNIT PO DAILY for 10 Days, #10 CAP Prov:MELISSA ARAUJO MD 10/29/23 Ascorbic Acid (VITAMIN C TABLET) 500 Mg Tb, 1 TAB PO BID, #20 TAB Prov:MELISSA ARAUJO MD 10/29/23 Reported Medications Baclofen (Baclofen) 20 Mg Tab, 1 TAB PO BID 01/21/24 Tramadol Hcl (Tramadol Hcl) 50 Mg Tab, 50 MG PO, TAB 10/23/23 Review of systems Review of Systems: HEENT:Normal, RESPIRATORY:Normal, GI:Normal, :Normal, MSK:Normal, MSK:Abnormal, NEURO:Normal Examination Vital signs Vital Signs Date Time Temp Pulse Resp B/P (MAP) Pulse Ox O2 Delivery O2 Flow Rate FiO2 01/28/24 05:00 98.1 72 17 100/64 (76) 96 98.1 01/27/24 20:00 Room Air* 0 21 Medications Current Medications Medications (Trade) Dose Ordered Sig/Eliza Route PRN Reason Start Time Stop Time Status Last Admin Vancomycin HCl 200 ml @ 200 mls/hr Q8H IV 01/27/24 12:00 01/28/24 03:59 Sodium Chloride (Saline Lock Ns) 10 ml QSHIFT@10,22 IV 01/27/24 22:00 01/27/24 21:29 Laboratory : 1980 LOC: OVERFLOW ROOM / BED: 1021-ER / A AGE / SEX: 43 / M ADM STATUS: ADM IN SERVICE 1721 ORDERING PHYSICIAN: ULYSSES VEGA PROCEDURE(s): MSL - LUMBAR SPINE WO CONTRAST REASON: OSTEO ORDER NUMBER(s): [id number], ACCESSION NUMBER(s): [id number] EXAM: MRI LUMBAR SPINE WO CONTRAST HISTORY: OSTEO COMPARISON: None TECHNIQUE: MRI was performed utilizing multiple appropriate imaging planes and pulse sequences. FINDINGS: For the purposes of this report, the last square-shaped vertebra is considered L5. Prior to any surgery, correlation with lumbar spine radiographs should be done. VERTEBRAE: No significant compression deformity is noted. A subcentimeter hemangioma is seen in left paramedian anterior S1. Partially seen T12 shows diffuse bone marrow edema. Visualized portions of the bilateral sacroiliac joints are unremarkable. SPINAL CORD: Terminates at the L1 level. No evidence of cord edema or myelomalacia within the partially visualized conus medullaris. PARASPINAL SOFT TISSUES: Unremarkable. INTERVERTEBRAL DISCS: T12-L1: No disc herniation, central canal stenosis or neural foramina narrowing. The posterior facets and ligamentum flavum are unremarkable. L1-L2: No disc herniation, central canal stenosis or neural foramina narrowing. The posterior facets and ligamentum flavum are unremarkable. L2-L3: No disc herniation, central canal stenosis or neural foramina narrowing. The posterior facets and ligamentum flavum are unremarkable. L3-L4: No disc herniation, central canal stenosis or neural foramina narrowing. The posterior facets and ligamentum flavum are unremarkable. L4-L5: No disc herniation, central canal stenosis or neural foramina narrowing. The posterior facets and ligamentum flavum are unremarkable. L5-S1: Mild central disc protrusion with mild central canal stenosis without nerve impingement. The posterior facet joints are unremarkable. Neural foramina are patent. OTHER: None. IMPRESSION: 1. The partially seen T12 shows diffuse bone marrow edema which is related to pathology at T11-T12 most likely discitis and osteomyelitis. Please refer to the accompanying MRI of the thoracic spine MRI for detailed information. 2. Mild central disc protrusion at L5-S1 with mild central canal stenosis without nerve impingement. ATED BY: DEBORA VENEGAS MD DICTATED DATE/TIME: 01/21/241922 SIGNED BY: DEBORA VENEGAS MD SIGNED DATE/TIME: 01/21/241922 CC: Labs Test 01/28/24 06:20 01/27/24 10:58 01/27/24 06:40 01/26/24 16:10 Range/Units Creatinine 0.74 0.700-1.30 mg/dL Glomerular Filtration Rate Calc 115 >90 mL/min Vancomycin Level Trough 3.8 L 5-10 ug/mL White Blood Count 7.6 4.4-10.8 10^3/uL Red Blood Count 4.34 L 4.5-5.90 10^6/uL Hemoglobin 12.0 L 13.5-17.5 g/dL Hematocrit 36.0 L 41.0-53.0 % Mean Corpuscular Volume 82.8 80.0-100.0 fL Mean Corpuscular Hemoglobin 27.7 L 28.0-32.0 pg Mean Corpuscular Hemoglobin Concent 33.5 32.0-36.0 g/dL Red Cell Distribution Width 13.1 11.8-14.3 % Platelet Count 394 140-450 10^3/uL Mean Platelet Volume 7.2 6.9-10.8 fL Neutrophils (%) (Auto) 52.2 37.0-80.0 % Lymphocytes (%) (Auto) 34.1 10.0-50.0 % Monocytes (%) (Auto) 7.7 0.0-12.0 % Eosinophils (%) (Auto) 4.8 0.0-7.0 % Basophils (%) (Auto) 1.2 0.0-2.0 % Neutrophils # (Auto) 4.0 1.6-8.6 10 ^3/uL Lymphocytes # (Auto) 2.6 0.4-5.4 10 ^3/uL Monocytes # (Auto) 0.6 0-1.3 10 ^3/uL Eosinophils # (Auto) 0.4 0-0.8 10 ^3/uL Basophils # (Auto) 0.1 0-0.2 10 ^3/uL Nucleated Red Blood Cells 0.1 % Prothrombin Time 11.4 9.3-11.8 sec Prothrombin Time INR 1.08 0.9-1.15 Test 01/23/24 06:53 01/22/24 04:24 01/21/24 11:20 01/21/24 11:06 Range/Units Total Bilirubin 0.4 0.2-1.0 mg/dL Direct Bilirubin 0.1 <0.3 mg/dL Aspartate Amino Transferase (AST) 15 13-40 U/L Alanine Aminotransferase (ALT) 14 7-40 U/L Alkaline Phosphatase 116 46-116 U/L Total Protein 7.3 5.7-8.2 g/dL Albumin 3.7 3.2-4.8 g/dL Sodium Level 138 136-145 mmol/L Potassium Level 3.8 3.5-5.1 mmol/L Chloride Level 105 98-107 mmol/L Carbon Dioxide Level 23 20-31 mmol/L Anion Gap 10 5-15 Blood Urea Nitrogen 13 9-23 mg/dL BUN/Creatinine Ratio 14.3 10.0-20.0 Serum Glucose 102 74-106 mg/dL Calcium Level 9.1 8.7-10.4 mg/dL Lactic Acid Level 0.9 0.4-2.0 mmol/L C-Reactive Protein High Sensitivity 2.51 H <1.0 mg/dL Plasma/Serum Blood Alcohol 3.6 <10 mg/dL Urine Color Colorless Yellow Urine Clarity Clear Clear Urine pH 6.5 5.0-9.0 Urine Specific [place] 1.006 1.001-1.035 Urine Protein Negative Negative Urine Ketones Negative Negative Urine Blood Negative Negative /uL Urine Nitrite Negative Negative Urine Bilirubin Negative Negative Urine Urobilinogen Normal Negative mg/dL Urine Leukocyte Esterase Negative Negative /uL Urine RBC <1 0 - 3 /hpf Urine WBC None seen 0 - 3 /hpf Urine Squamous Epithelial Cells None seen <5 /hpf Urine Bacteria None seen None Seen /hpf Urine Glucose Normal Normal mg/dL Microbiology Date/Time Source Procedure Growth Status 01/23/24 08:51 Blood Blood Culture - Preliminary NO GROWTH AFTER 72 HOURS OF INCUBATION. Resulted Examination: GENERAL:Normal, HEENT:Normal, NECK:Normal, LUNGS:Normal, ABDOMEN:Normal, MSK:Abnormal, NEURO:Normal, :Normal Problem List/Assessment/Plan Problems: (1) Osteomyelitis of lumbar spine Assessment and Plan 1. Osteomyelitis.discitis Of the spine without epidural abscess This is treat without surgery with iv antibiotics per discretion of Infectious disease specialist. If there develops any progressive neuro deficit or if after 4-6 weeks, no clinical improvement is seen, I am happy to be re-consulted to consider surgical intervention. Plan discussed with Plan discussed with: Patient NISHI MIRANDA MD Jan 28, 2024 08:31
[2024-01-28 12:30] VITALS: BP 108/79; PULSE 73; RESP 20; TEMP 97.9; O2SAT 99
--- NOTE | 2024-01-28 12:42 | DVHPN2 ---
Reviewed: Care Plan, H&P, Labs, Medications, Previous Orders, Radiology Changes from previous H/P or p: No Changes Eyes: No Pain, No Vision change, No Conjunctivae inflammation, No Eyelid inflammation, No Other, No Redness ENT: No Ear pain, No Ear discharge, No Nose pain, No Nose discharge, No Nose congestion, No Mouth pain, No Mouth swelling, No Throat pain, No Throat swelling, No Other Cardiovascular: No Chest Pain, No Palpitations, No Orthopnea, No Paroxysmal Noc. Dyspnea, No Edema, No Lt Headedness, No Other Respiratory: No Cough, No Dry, No Shortness of breath, No SOB with excertion, No Wheezing, No Hemoptysis, No Pleuritic Pain, No Sputum, No Other Gastrointestinal: No Nausea, No Vomiting, No Abdominal Pain, No Diarrhea, No Constipation, No Melena, No Hematochezia, No Other Genitourinary: No Dysuria, No Frequency, No Incontinence, No Hematuria, No Retention, No Other Musculoskeletal: No other, No neck pain, No shoulder pain, No arm pain; back pain; No hand pain, No leg pain, No foot pain Skin: No Rash, No Lesions, No Jaundice, No Bruising, No Other Objective Vitals Vital Signs Date Time Temp Pulse Resp B/P (MAP) Pulse Ox O2 Delivery O2 Flow Rate FiO2 01/28/24 08:30 98.0 77 19 110/72 (85) 100 98.0 01/27/24 20:00 Room Air* 0 21 Intake/Output Intake and Output 01/28/24 07:00 Intake Total 2850 ml Balance 2850 ml Intake Oral 2150 ml IV Total 700 ml # Voids 7 # Bowel Movements 1 Medications Current Medications Medications Dose Ordered Sig/Eliza Route Start Time Stop Time Status Last Admin Dose Admin Acetaminophen/ Hydrocodone Bitart 1 tab Q4HP PRN PO 01/21/24 17:30 01/22/24 18:56 1 TAB Baclofen 20 mg Q12HP PO 01/21/24 22:00 01/28/24 09:03 20 MG Vancomycin HCl 0 ml @ 0 mls/hr UD IV 01/22/24 13:45 Ceftriaxone Sodium/Dextrose 50 ml @ 50 mls/hr Q12HR@,21 IV 01/23/24 09:00 01/28/24 09:02 50 MLS/HR Vancomycin HCl 200 ml @ 200 mls/hr Q8H IV 01/27/24 12:00 01/28/24 11:52 200 MLS/HR Sodium Chloride 10 ml QSHIFT@10,22 IV 01/27/24 22:00 01/28/24 09:27 10 ML Laboratory Results Laboratory Tests 01/22/24 04:24 01/27/24 06:40 01/28/24 06:20 Urinalysis Test 01/21/24 11:06 Urine Color Colorless (Yellow) Urine Clarity Clear (Clear) Urine pH 6.5 (5.0-9.0) Urine Specific [place] 1.006 (1.001-1.035) Urine Protein Negative (Negative) Urine Ketones Negative (Negative) Urine Blood Negative /uL (Negative) Urine Nitrite Negative (Negative) Urine Bilirubin Negative (Negative) Urine Urobilinogen Normal mg/dL (Negative) Urine Leukocyte Esterase Negative /uL (Negative) Urine RBC <1 /hpf (0 - 3) Urine WBC None seen /hpf (0 - 3) Urine Squamous Epithelial Cells None seen /hpf (<5) Urine Bacteria None seen /hpf (None Seen) Urine Glucose Normal mg/dL (Normal) Microbiology Microbiology Date/Time Source Procedure Growth Status 01/23/24 08:51 Blood Blood Culture - Final NO GROWTH AFTER 5 DAYS OF INCUBATION. Complete Labs and/or images reviewed: Labs reviewed by me, Image(s) reviewed by me Assessment/Plan Assessment/Plan Severe low back pain Acute osteomyelitis by T11-12 by MRI: Vancomycin Rocephin for six weeks consult for spine surgeon Dr. Garibay , advised IV antibiotics for six weeks, no surgery re-evaluate after three months Consult by ID Dr. Suresh Hensley appreciated blood cultures negative chest x-ray CT abdomen pelvis without contrast liver function test hepatitis panel recommended Rocephin 2 g IV q.12h for six weeks and vancomycin 1 g IV daily for six weeks History of cholecystectomy 11/16/2023 after which patient developed back pain Chest x-ray negative CT abdomen pelvis shows proctocolitis: Patient was treated with Rocephin Patient being discharged home on home health for IV antibiotics for six weeks Time spent 40 minutes Plan discussed with: Patient Date of Service: Jan 28, 2024 Billing Provider: JOHNNIE YARBROUGH MD Common Visit Codes: [id number] INP/OBS CARE(HIGH) JOHNNIE YARBROUGH MD Jan 28, 2024 12:42
--- NOTE | 2024-01-28 12:54 | DVHDS2 ---
Discharge Summary Date of Admission Jan 21, 2024 at 17:21 Date of Discharge: Jan 28, 2024 Admitting Diagnosis Severe low back pain Wounds: None Labs/Diagnostic Data: Laboratory Results Test 01/28/24 11:08 01/28/24 06:20 01/27/24 06:40 01/26/24 16:10 Vancomycin Level Trough 13.6 ug/mL (5-10) Creatinine 0.74 mg/dL (0.700-1.30) Glomerular Filtration Rate Calc 115 mL/min (>90) White Blood Count 7.6 10^3/uL (4.4-10.8) Red Blood Count 4.34 10^6/uL (4.5-5.90) Hemoglobin 12.0 g/dL (13.5-17.5) Hematocrit 36.0 % (41.0-53.0) Mean Corpuscular Volume 82.8 fL (80.0-100.0) Mean Corpuscular Hemoglobin 27.7 pg (28.0-32.0) Mean Corpuscular Hemoglobin Concent 33.5 g/dL (32.0-36.0) Red Cell Distribution Width 13.1 % (11.8-14.3) Platelet Count 394 10^3/uL (140-450) Mean Platelet Volume 7.2 fL (6.9-10.8) Neutrophils (%) (Auto) 52.2 % (37.0-80.0) Lymphocytes (%) (Auto) 34.1 % (10.0-50.0) Monocytes (%) (Auto) 7.7 % (0.0-12.0) Eosinophils (%) (Auto) 4.8 % (0.0-7.0) Basophils (%) (Auto) 1.2 % (0.0-2.0) Neutrophils # (Auto) 4.0 10 ^3/uL (1.6-8.6) Lymphocytes # (Auto) 2.6 10 ^3/uL (0.4-5.4) Monocytes # (Auto) 0.6 10 ^3/uL (0-1.3) Eosinophils # (Auto) 0.4 10 ^3/uL (0-0.8) Basophils # (Auto) 0.1 10 ^3/uL (0-0.2) Nucleated Red Blood Cells 0.1 % Prothrombin Time 11.4 sec (9.3-11.8) Prothrombin Time INR 1.08 (0.9-1.15) Test 01/23/24 06:53 01/22/24 04:24 01/21/24 11:20 01/21/24 11:06 Total Bilirubin 0.4 mg/dL (0.2-1.0) Direct Bilirubin 0.1 mg/dL (<0.3) Aspartate Amino Transferase (AST) 15 U/L (13-40) Alanine Aminotransferase (ALT) 14 U/L (7-40) Alkaline Phosphatase 116 U/L (46-116) Total Protein 7.3 g/dL (5.7-8.2) Albumin 3.7 g/dL (3.2-4.8) Sodium Level 138 mmol/L (136-145) Potassium Level 3.8 mmol/L (3.5-5.1) Chloride Level 105 mmol/L (98-107) Carbon Dioxide Level 23 mmol/L (20-31) Anion Gap 10 (5-15) Blood Urea Nitrogen 13 mg/dL (9-23) BUN/Creatinine Ratio 14.3 (10.0-20.0) Serum Glucose 102 mg/dL (74-106) Calcium Level 9.1 mg/dL (8.7-10.4) Lactic Acid Level 0.9 mmol/L (0.4-2.0) C-Reactive Protein High Sensitivity 2.51 mg/dL (<1.0) Plasma/Serum Blood Alcohol 3.6 mg/dL (<10) Urine Color Colorless (Yellow) Urine Clarity Clear (Clear) Urine pH 6.5 (5.0-9.0) Urine Specific [place] 1.006 (1.001-1.035) Urine Protein Negative (Negative) Urine Ketones Negative (Negative) Urine Blood Negative /uL (Negative) Urine Nitrite Negative (Negative) Urine Bilirubin Negative (Negative) Urine Urobilinogen Normal mg/dL (Negative) Urine Leukocyte Esterase Negative /uL (Negative) Urine RBC <1 /hpf (0 - 3) Urine WBC None seen /hpf (0 - 3) Urine Squamous Epithelial Cells None seen /hpf (<5) Urine Bacteria None seen /hpf (None Seen) Urine Glucose Normal mg/dL (Normal) Other Laboratory Tests 01/28/24 06:20 01/27/24 06:40 01/22/24 04:24 Brief Hx & Hospital Course: 43-year-old male with a history of cholecystectomy 11/16/2023 who developed back pain subsequently came in complaining of severe low back pain. MRI showed osteomyelitis T11-12 started on vancomycin and Rocephin seen by DEBBY Hensley. Blood cultures negative. ID Advised vancomycin 1 g IV daily for six weeks and Rocephin 2 g IV q.12h for six weeks also seen by spine surgeon Dr. Garibay advised to continue IV antibiotics for six weeks by home health no surgery at the present time patient has had proctocolitis by CT abdomen pelvis for which he was treated with Rocephin. Patient is being discharged home on home health for six weeks of IV antibiotics. He will follow up with the Dr. Suresh Hensley in one week. Patient is afebrile stable vital signs and ambulating at the time of discharge Consults/Reason for consult DEBBY Hensley Spine surgeon Dr. Garibay Operations or Procedures CT LS spine MRI LS spine Condition at Discharge: Fair Final Diagnosis/Problems List Severe low back pain Acute osteomyelitis by T11-12 by MRI: Vancomycin Rocephin for six weeks consult for spine surgeon Dr. Garibay , advised IV antibiotics for six weeks, no surgery re-evaluate after three months Consult by DEBBY Hensley appreciated blood cultures negative chest x-ray CT abdomen pelvis without contrast liver function test hepatitis panel recommended Rocephin 2 g IV q.12h for six weeks and vancomycin 1 g IV daily for six weeks History of cholecystectomy 11/16/2023 after which patient developed back pain Chest x-ray negative CT abdomen pelvis shows proctocolitis: Patient was treated with Rocephin Patient being discharged home on home health for IV antibiotics for six weeks Discharge Disposition: Home with Health Services Discharge Instruct/Medications Diet: Regular Activity: Light activity Follow Up/Referral: Follow up with DEBBY Hensley in one week Follow up with Spine surgeon Dr. Garibay in six weeks Follow up with your primary Dr Medications: Rocephin 2 g IV q.12h for six weeks Vancomycin 1 g IV daily for six weeks To be administered by home health 39 (Time Taken for discharge summary 39 minutes) Discharge Statement: "Patient was advised to return to the ER or call 911 if any headaches, dizziness, shortness of breath, chest pain, abdominal pain, bleeding, fevers, or worsening of medical condition. Patient was counseled about treatment plan, medications, possible side effects, patientverbalized understanding. All questions were answered to the best of my ability. This discharge took greater then 30 minutes in planning, reviewing documentation, counseling the patient, and discussing with other team members." ASSESSMENT ASSESSMENT Hospital Course Uneventful Assessment Severe low back pain Acute osteomyelitis by T11-12 by MRI: Vancomycin Rocephin for six weeks consult for spine surgeon Dr. Garibay , advised IV antibiotics for six weeks, no surgery re-evaluate after three months Consult by ID Dr. Suresh Hensley appreciated blood cultures negative chest x-ray CT abdomen pelvis without contrast liver function test hepatitis panel recommended Rocephin 2 g IV q.12h for six weeks and vancomycin 1 g IV daily for six weeks History of cholecystectomy 11/16/2023 after which patient developed back pain Chest x-ray negative CT abdomen pelvis shows proctocolitis: Patient was treated with Rocephin Patient being discharged home on home health for IV antibiotics for six weeks Date of Service: Jan 28, 2024 Billing Provider: JOHNNIE YARBROUGH MD Common Visit Codes: [id number] DISCH DAY >30min JOHNNIE YARBROUGH MD Jan 28, 2024 12:54
[2024-01-28] MEDS ORDERED: VANCOMYCIN 1,250 MG in D5W 5% 250 ML IV SCH (20:00)
--- NOTE | 2024-01-28 23:00 | DVHPN2 ---
Consult Progress Note Date Seen: Jan 28, 2024 Subjective Patient reports: Feels better (tolerating picc line and flushing well ) Objective vital signs Vital Sign Date Time Temp Pulse Resp B/P (MAP) Pulse Ox O2 Delivery O2 Flow Rate FiO2 01/28/24 12:30 97.9 73 20 108/79 (89) 99 97.9 01/28/24 07:30 Room Air* 0 21 Total Intake and Output 01/27/24 01/27/24 01/28/24 15:00 23:00 07:00 Intake Total 250 ml 900 ml 1700 ml Balance 250 ml 900 ml 1700 ml medications Physical Exam: General: NAD Neck: Supple. No masses. HEENT: Gag reflex present. PERRL. Normal lids and conjunctiva. Moist mucous membranes. Oropharynx without lesions, exudates, or excessive erythema. Normal appearance of the external aspects of the nose and ears. Heart: Regular rhythm, normal rate. No murmur. Lungs: Intubated. Breath sounds present bilaterally. Thick dark-colored sputum noted. Abdomen: Soft. Non-tender. Non-distended. Normal bowel sounds. No masses or abdominal hernia. Musculoskeletal: No notable movement. Skin: Warm and dry. No rashes. laboratory and microbiology Laboratory Tests 01/28/24 06:20 01/27/24 06:40 01/22/24 04:24 Test 01/22/24 04:24 Range/Units Serum Glucose 102 74-106 mg/dL Problem List/Assessment/Plan Problems(with codes): (1) Calculus of gallbladder without cholecystitis without obstruction (2) Ileus (3) Hyponatremia (4) Abdominal distention (5) Cholelithiasis (6) Fever, unspecified (7) Elevated liver enzymes (8) Acute abdominal pain (9) Osteomyelitis of lumbar spine (10) Protruded lumbar disc (11) DDD (degenerative disc disease), lumbosacral Problem List/Assessment/Plan ID Problem List: - Osteoarthritis - Gallstones (status post cholecystectomy) - Diabetes mellitus - 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 male with a past medical history of osteoarthritis, gallstones (status post cholecystectomy on November 15), and diabetes mellitus, who presents with mid to lower back pain. The pain has been present since his cholecystectomy and is worse after sleeping. An MRI done a week ago showed L1 to L5-S1 degeneration and possible T11-T12 osteomyelitis with phlegmon of the anterior paraspinal soft tissues at this level spanning a distance of 3.2 cm. He has no lower extremity weakness, no bowel or bladder incontinence, and no paresthesias. Physical exam is notable for no tenderness on his back, no swelling, redness, edema, or open wounds. Laboratory studies show elevated WBC counts up to 11.53, current WBC of 10.9, hemoglobin 14.4, platelets 532, and CRP elevated at 2.51. MRI of the thoracic spine shows discitis and osteomyelitis of T11-T12 with phlegmon. MRI of the lumbar spine shows mild central disc protrusion at L5-S1 with mild central canal stenosis with nerve impingement. 01/22: Chest xray shows no cardiopulmonary disease and abdomen pelvic ct shows concentric wall thickening around sigmoid colon and rectum , suggest of mild proctorcollitis , no free air or fluid collection. gallbladder area shows signs of abscess. Patient continues to have osteomyelitis of the spine without clear ideology of source 01/25: Patient was seen by neurosurgery and recomends no surgery at this time 01/27: Vancomycin levels were low yesterday but was repeated today and is therapeutic Plan: - get piccline placement - IV vancomycin and ceftriaxone for 6 weeks - monitor patients clinical exam for improvement on and off antibiotics - follow up with infectious disease in 6 weeks for antibiotic response as well as status of inflammation - recommend physical therapy aver IV antibiotics - Collect baseline CRP and ESR level - repeat MRI 4 months after antibiotics are complete to ensure infection is gone - Follow up on blood cultures - most likely ideology of thoraco spinal osteomyelitis is from recent surgery Plan discussed with: Other Dietary Evaluation Review Comments: Continue current plan of care Expected Outcomes/Goals: F/U in 3-5 days DAILY RUSSELL MD Jan 28, 2024 23:00
== END 2024-01-28 16:00 | disposition home health service (06) | DRG 420 ==
LOC: ER 09:56 → OVERFLOW 17:21 → WEST WING 01-22 22:50
PROVIDERS: ADMIT Registered Nurse General Practice; ATTEND Family Medicine
PROC: 02HV33Z Insertion of Infusion Device into Superior Vena Cava, Percutaneous Approach (ICD-10-PCS; principal; 2024-01-27)
PROC: B548ZZA Ultrasonography of Superior Vena Cava, Guidance (ICD-10-PCS; 2024-01-27)
DX: E11.69 Type 2 diabetes mellitus with other specified complication (principal); M46.24 Osteomyelitis of vertebra, thoracic region; M46.26 Osteomyelitis of vertebra, lumbar region; M51.27 Other intervertebral disc displacement, lumbosacral region; K80.20 Calculus of gallbladder without cholecystitis without obstruction; M51.26 Other intervertebral disc displacement, lumbar region; Z90.49 Acquired absence of other specified parts of digestive tract
CPT/HCPCS: 36415; 36569; 71046; 72146; 72148; 74176; 80048; 80076; 80202; 80320; 81001; 82565; 83605; 85025; 85610; 86141; 87040; G0378; J1885; J2543; J7060

== ENCOUNTER 2024-01-30 11:11 | Emergency (ER) | payer MEDICAID ==
[~2024-01-30 11:11] MED LIST changes: +BACL20TA PO
== END 2024-01-30 11:46 | disposition left against medical advice (07) ==
LOC: ER 11:11
DX: Z45.2 Encounter for adjustment and management of vascular access device (principal); Z53.21 Procedure and treatment not carried out due to patient leaving prior to being seen by health care provider